=== PATIENT | male | born 1965 | race Caucasian/White ===

== ENCOUNTER 2016-07-17 13:00 | Inpatient (IN) | payer BC ==
[~2016-07-17] VITALS: Ht 182.9 cm; Wt 125.5 kg
--- NOTE | ~2016-07-17 | CON ---
PATIENT'S NAME: KAITLYN THURSTON [facility] AGE: 50 Y [address] ROOM: [place] [address] LOCATION: GICU ADMIT DATE: 07/17/2016 Consultation DISCHARGE DATE: FAMILY PHYSICIAN: Andre Lomax MD ATTENDING PHYSICIAN: Dominga Uribe REFERRING PHYSICIAN: CINDY SUAREZ MD REASON FOR CONSULTATION: Management of hypertension and bradycardia. HISTORY OF PRESENT ILLNESS: A 50-year-old gentleman with a past medical history significant for remote cardiac surgery back in 1975, was admitted to the [facility] under neurosurgical care for acute stroke in the left cerebellar hemispheres. CT angiography was done, which indicated proximal left and distal right vertebral artery occlusion consistent with dissection. Neurology consultation was also obtained by Neurosurgery. He was conservatively managed and the patient progressed very well during the course of the hospitalization until on 07/21/2026 when he woke up and he had slurred speech with drooping of the right face as well as ocular nerve palsy as well. An MRI was repeated again, which did show worsening of the previous stroke as well as new stroke in the cerebellar hemisphere, which was in the left cerebellum. His neurological status continued to worsen during the day in terms of for his neurological status. On asking the patient, he said he feels very bad right now in terms of weakness in his right side and eye and cannot speak. He denied having any chest pressure or any chest pain at this point. He denied to have any cough, any sputum production, and also denied any diarrhea or constipation. He did endorse having nausea all day long. PAST MEDICAL HISTORY: Remote history of cardiac surgery done. Moderate obesity. MEDICATIONS: The patient is notably currently on aspirin, Lipitor, and subcutaneous heparin. In addition, he is on hydrochlorothiazide and metoprolol for blood pressure control. SOCIAL HISTORY: Nonsmoker. No alcohol. FAMILY HISTORY: Negative for any coronary artery disease or any blood clots. ALLERGIES: THE PATIENT IS ALLERGIC TO PENICILLIN. PATIENT'S NAME: KAITLYN THURSTON [facility] AGE: 50 Y [address] ROOM: [place] [address] LOCATION: GICU ADMIT DATE: 07/17/2016 Consultation DISCHARGE DATE: FAMILY PHYSICIAN: Andre Lomax MD ATTENDING PHYSICIAN: Dominga Uribe REVIEW OF SYSTEMS: All other systems reviewed and were negative except as mentioned in the HPI. PHYSICAL EXAMINATION: VITAL SIGNS: Blood pressure procedure 202/83, heart rate of 82, respiratory rate 17, saturating 92%. GENERAL: In mild acute distress due to nausea. HEENT: Head: Atraumatic, normocephalic. Eyes: Nonicteric. No pallor. Oropharynx: Moist mucous membranes CARDIOVASCULAR: Loud S1 and S2. No murmur or gallops heard. RESPIRATORY: Clear to auscultation bilaterally. ABDOMEN: Soft, nontender, nondistended. Bowel sounds are present. EXTREMITIES: No clubbing, cyanosis, or edema. PSYCH: Normal affect mood and speech. NEUROLOGIC: Right third nerve palsy as well as right facial droop noted. Horizontal nystagmus noted as well. Power 5/5 in both extremities. MUSCULOSKELETAL: No muscle tenderness or swelling noted. LABORATORY DATA: Lab work done showed today a glucose of 135, BUN 13, creatinine 0.9, sodium 139, potassium 4.0, chloride 102, bicarb 27, calcium 9.1. ASSESSMENT: 1. Bilateral cerebellar strokes. 2. Bilateral vertebral artery dissection. 3. Hypertension. 4. Morbid obesity. 5. Bradycardia. PLAN: 1. Bradycardia. We obtained an EKG, which did show sinus rhythm, ST-T wave abnormality in the lateral as well as inferior leads. He was on metoprolol. We are going to hold metoprolol regarding his bradycardia. I discussed the case with Dr. Uribe given his bradycardia and hypertension, to consider the possibility of [place] tirad. We are going to obtain one set of troponin as well as an echocardiography in the morning to look for any cardiac changes, but at this point it is likely that these are secondary to primary [employer] process rather than a cardiovascular process. 2. Bilateral cerebellar strokes. Neurology as well as neurosurgeons on board, conservative management so far. Recommended Neurosurgery to consider a neurocritical care consult at this point. 3. Hypertension. The patient is running high blood pressure which I discussed with Dr. Suarez to allow permissive hypertension in order to keep the perfusion to the brain. PATIENT'S NAME: KAITLYN THURSTON [facility] AGE: 50 Y [address] ROOM: [place] [address] LOCATION: [facility] ADMIT DATE: 07/17/2016 Consultation DISCHARGE DATE: FAMILY PHYSICIAN: Andre Lomax MD ATTENDING PHYSICIAN: Dominga Uribe 4. DVT prophylaxis per neurosurgery have been started with heparin 500 q.8 hours. I would additionally recommend a CAT scan again this afternoon to see if there is any hemorrhagic conversion or any evidence of increase in intracranial pressure evident on CAT scan. MD TIO DANIELS/melissa /[id number] d: 07/22/16 0140 t: 07/23/16 1232, CONSULTATION REPORT
--- NOTE | ~2016-07-17 | OR ---
PATIENT'S NAME: KAITLYN THURSTON [facility] AGE: 50 Y [address] ROOM: [place] [address] LOCATION: [facility] ADMIT DATE: 07/17/2016 OR/Procedure Report DISCHARGE DATE: FAMILY PHYSICIAN: Andre Lomax MD ATTENDING PHYSICIAN: Dominga Uribe SURGEON: Emerson Winslow MD CONTENT STRATEGY LEAD: DATE OF PROCEDURE: 08/07/2016 PREOPERATIVE DIAGNOSIS: Altered mental status from brain infarct. POSTOPERATIVE DIAGNOSIS: Altered mental status from brain infarct. PROCEDURES PERFORMED: 1. Percutaneous tracheostomy. 2. EGD with PEG placement. ANESTHESIA: General with local. ESTIMATED BLOOD LOSS: Minimal. REASON FOR PROCEDURE: The patient is a 50-year-old gentleman, who was recently admitted for a cerebellar infarct. He has had significantly altered mental status, and is in need of long-term airway and enteral support. The risks and benefits were discussed with his , who agreed to proceed with tracheostomy and feeding tube placement. PROCEDURE IN DETAIL: The patient was left in the ICU bed with the head elevated. A shoulder roll was used to extend the neck somewhat. After anesthesia provided sedation, the neck was prepped with ChloraPrep and sterilely draped. Lidocaine with epinephrine was injected into the neck just above the sternal notch overlying the trachea. A 2-cm vertical incision was made. Blunt dissection was carried down almost to the trachea. We then advanced the bronchoscope into the endotracheal tube, and left it at the very end of the endotracheal tube. We then carefully withdrew the endotracheal tube, so it was just above where the neck incision was. A needle was then advanced through the trachea till there was air aspirated. A guidewire was then advanced through this needle. Direct visualization showed the guidewire extending down the trachea. The tract was then sequentially dilated. Once adequately dilated, a #8 percutaneous Shiley tracheostomy tube was advanced over the guidewire and into position. There was good oxygenation and CO2 return. The bronchoscope was then advanced through the tracheostomy, and did show some blood in the trachea. We aspirated this, and did not see any active bleeding, but did feel a little more blood initially than I usually see. We went ahead and placed the tracheostomy strap around his neck and removed the PATIENT'S NAME: KAITLYN THURSTON [facility] AGE: 50 Y [address] ROOM: [address] [address] LOCATION: GICU ADMIT DATE: 07/17/2016 OR/Procedure Report DISCHARGE DATE: FAMILY PHYSICIAN: Andre Lomax MD ATTENDING PHYSICIAN: Dominga Uribe shoulder roll. We then advanced the bronchoscope again. This time, there was no evidence of increased bleeding. The patient was placed on the ventilator. A bite block was then placed between his teeth. The gastroscope was advanced through the bite block, and the esophagus was intubated under direct visualization. No abnormalities were seen in the stomach or duodenum. Transillumination and pressure on the abdominal wall were used to localize an area for placement of the feeding tube. This was then marked and prepped with ChloraPrep. Further lidocaine was injected in the area. A 1-cm incision was made. A needle was then advanced through the abdominal wall and visualized entering the gastric mucosa. A guidewire was advanced through the needle. The guidewire was then grasped with a snare, and carefully withdrawn through the esophagus and oropharynx. A PEG tube was advanced over the guidewire, and pulled into position. A bolster was used to hold this in place. POST-PROCEDURE PLAN: The patient will be left in the ICU. We will wean his oxygen back down a 4. They can use the feeding tube in eight hours. MD Larry KRAMERTM/victor ml /[id number] d: 08/07/162016 t: 08/11/16 1400, OPERATIVE SUMMARY
--- NOTE | ~2016-07-17 | HP ---
PATIENT'S NAME: [facility] AGE: 50 Y [address] ROOM: [place] [address] LOCATION: [facility] ADMIT DATE: 07/17/2016 History & Physical DISCHARGE DATE: FAMILY PHYSICIAN: PHYSICIAN, UNKNOWN ATTENDING PHYSICIAN: Dominga Uribe DATE OF SERVICE: 07/17/2016 REFERRING PHYSICIAN: Dr. Fidel Rogers, physician in [place]. REASON FOR REFERRAL: Cerebellar stroke. PATIENT IDENTIFICATION: The patient is a 50-year-old male. PRESENTING COMPLAINT: Dizziness. HISTORY OF PRESENT ILLNESS: The patient's symptoms began about 3 weeks ago and are still present. He describes the dizziness as a sense of rotation and feeling weak all over. He rates the symptom as severe. There are no known alleviating or aggravating factors. The patient also has nausea and vomiting. The patient's symptoms were thought to be vertigo initially, but he ended up having an MRI of the brain, which showed a cerebellar infarct. The patient was therefore [place] evaluation and treatment. PAST MEDICAL HISTORY: The patient has elevated blood pressure and previous aortic valve replacement. He also has a history of back pain. CURRENT MEDICATIONS: 1. Acyclovir. 2. Hydrochlorothiazide. 3. Metoprolol. 4. Prednisone on a tapering dose. 5. Bioflex oral. 6. Vitamin E. 7. Garlic. 8. Aleve. ALLERGIES: PENICILLIN AND ASPIRIN. PATIENT'S NAME: [facility] AGE: 50 Y [address] ROOM: [place] [address] LOCATION: [facility] ADMIT DATE: 07/17/2016 History & Physical DISCHARGE DATE: FAMILY PHYSICIAN: PHYSICIAN, UNKNOWN ATTENDING PHYSICIAN: Dominga Uribe SOCIAL HISTORY: The patient is a nonsmoker. He drinks alcohol occasionally. There is no history of drug use. FAMILY HISTORY: No family history of similar problems. ALLERGIES: PENICILLIN AND ASPIRIN. REVIEW OF SYSTEMS: A 10-point review of systems was carried out. The only abnormal findings are headache and dizziness as described in the previous part of the history. PHYSICAL EXAMINATION: GENERAL: The patient is a middle-aged gentleman, who was alert and cooperative through the examination. VITAL SIGNS: Blood pressure is 167/99, a pulse rate is 66. NEUROLOGIC: Speech is intact. Cranial Nerves: The patient has a slight left facial droop. Motor Examination: The patient has slight weakness in the left upper and lower extremities. Gait not tested. CARDIOVASCULAR SYSTEM: Heart sounds are present. RESPIRATORY SYSTEM: The patient is not short of breath at bedside. EXTREMITIES: No cyanosis or clubbing. SKIN: No skin rashes or skin masses. HEENT: Head: His head is atraumatic. Eyes and Ears: No evidence of trauma. REVIEW OF IMAGING STUDIES: The patient has had a brain MRI today. The MRI shows large areas of acute and subacute infarction involving the base of the cerebellar hemispheres greater on the left than on the right. There is mass effect on the left side with slight midline shift to the right. There is some effacement of the 4th ventricle. There is a small focus of hemorrhage in the left cerebellar hemisphere and possibly at the base of the right as well. There was some concern for early obstructive hydrocephalus. ASSESSMENT: A 50-year-old male with history of vertigo. Imaging studies done today show a cerebellar infarct. MEDICAL DECISION MAKING: The patient is being admitted to the ICU floor. Neurology consult has been requested. The patient's vertigo will be controlled with Zofran and his headaches will be controlled with [place]. We will try and get a CT angiogram to PATIENT'S NAME: KAITLYN THURSTON [facility] AGE: 50 Y [address] ROOM: [place] [address] LOCATION: [facility] ADMIT DATE: 07/17/2016 History & Physical DISCHARGE DATE: FAMILY PHYSICIAN: PHYSICIAN, UNKNOWN ATTENDING PHYSICIAN: Dominga Uribe rule out any underlying cause for the stroke. There may be other tests to be administered by the hospitalists as well. There is no indication for neurosurgical intervention at this time, but the patient might need a ventriculostomy if his hydrocephalus develops or worsens. The patient is being admitted for observation at this time. MD VALERIO HERNÁNDEZ/melissa /[id number] D: [id number] T: [id number] HISTORY & PHYSICAL
--- NOTE | ~2016-07-17 | CON ---
PATIENT'S NAME: KAITLYN LUCIANO [facility] AGE: 50 Y [address] ROOM: [id number] [place], [place] [address] LOCATION: GICU ADMIT DATE: 07/17/2016 Consultation DISCHARGE DATE: FAMILY PHYSICIAN: Andre Lomax MD ATTENDING PHYSICIAN: Dominga Uribe DATE OF CONSULTATION: 07/17/2016 REFERRING PHYSICIAN: CINDY HASSAN MD TIME SEEN: 09:00 p.m. HISTORY OF PRESENT ILLNESS: I was asked by Dr. Uribe to help in the workup of Mr. Luciano who is transferred here from the emergency room at [facility]. He was found to have a cerebellar stroke on brain imaging and the patient was sent here for further evaluation. The story is such that around 3 weeks ago, he started to have dizziness and lightheadedness that did not appear to be associated with a head change position maneuvers, that being typical of benign positional vertigo. He states that his dizziness was brought on by a change in position from standing up. He would experience a feeling of lightheadedness often and feel as though he was walking like a "drunkard." He went to his primary care physician and the physician felt that he likely had positional vertigo and placed him on what appears to be meclizine. The patient did make some improvement in his gait over the course of the next few days, where he was not drifting to one side. If he had to say which side he drifted to, that would be towards his left side, though in the past 48 hours, he says that his symptoms have improved. What prompted the admission to the hospital after this amount of time was few days ago, he started to get a bit worse with his symptoms, falling down after he came back from a bathroom, though he did not have any change in his symptoms such as problems with aphasia or visual field disturbance, which is double vision. His symptoms were clearly a bit worse than they were on the prior days of the week. Here in the hospital, he was noted to have blood pressure elevations to over 220 systolics and had to be given hydralazine for treatment of his blood pressures. When I saw the patient, he actually looked good. He was able to get up normally without any evidence of dizziness. When I walked him, he did not appear to have any change suggesting a wide-based gait. He was not nauseous, nor did he have vomiting, which was the problem with him a few days ago. He denied any headaches. In general, I asked him about issues concerning headache or neck pain, considering he is a young gentleman without any other known risk factors for stroke, as I was concerned that he may be had an injury to his neck. However, he denied any particular injury. He does some lifting as a maintenance repairer and also he was doing some general moving with his . He denies any heavy lifting or straining over the past few weeks. I felt the PATIENT'S NAME: KAITLYN LUCIANO [facility] AGE: 50 Y [address] ROOM: [place] [address] LOCATION: [facility] ADMIT DATE: 07/17/2016 Consultation DISCHARGE DATE: FAMILY PHYSICIAN: Andre Lomax MD ATTENDING PHYSICIAN: Dominga Uribe patient was a bit of a poor historian as I asked him numerous times about any head or neck pain. He denied this; however, in speaking to his , in retrospect, he did have new onset of left neck pain that was focal, was different from any typical type of a headache. With that concern, I asked for a CT angiogram to be done of his head and neck to look for any evidence of vertebral dissection, which may have caused a posterior circulation stroke. I was also concerned about the patient's history of valvular disease as well as having a surgery in the past for repair of a cardiac valve. The concern was not so much of an embolic stroke, but whether he has perhaps a collagen vascular type abnormality, which may be reflective in a vertebral dissection. Indeed, a CT angiogram of the neck did reveal evidence for a left vertebral artery dissection, which commenced at the skull base where there represented a likely complete occlusion. There was even some narrowing of the right vertebral artery. There was even some subtotal filling of the right vertebral artery above the level of C6. Distal to this occlusion, the basilar artery appeared to be widely patent and other vessels into the [place] was open. Noncontrast head CT backed up the prior brain imaging showing a cerebellar stroke that was clearly worse on the left side of the cerebellar hemisphere, distant with the MRI finding that was sent to us from [facility] done on 07/17/2016. There was no associated hemorrhage and there did not appear to be any blocking of the ventricular system such as the fourth ventricle. We noted that there was no evidence of any significant carotid stenosis. 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 This was distal to the origin of the left subclavian artery. There was postsurgical changes at that area with the patient's prior known surgery. CURRENT MEDICATIONS: Include: 1. Lipitor 80 mg p.o. q.h.s. started today. 2. Diazepam 2.5 mg q.6 hours p.r.n. for nauseousness. 3. Aspirin 81 mg p.o. daily. 4. Metoprolol 25 mg p.o. b.i.d. 5. Nicotine transdermal patch 21 mg daily. 6. Vitamin E 400 international units daily. 7. Zofran 4 mg q.6 hours p.r.n. nauseousness. 8. Hydrochlorothiazide 25 mg p.o. q.a.m. ALLERGIES: THE PATIENT HAS AN ALLERGY TO PENICILLIN. A PRIOR LISTED ALLERGY TO ASPIRIN IS UNLIKELY TO BE CORRECT AND DENIES ANY KNOWN HISTORY OF ALLERGY TO ASPIRIN. SOCIAL HISTORY: He is a previous smoker. He denies any alcohol use. He does use tobacco snuff on occasion. PATIENT'S NAME: KAITLYN LUCIANO [facility] AGE: 50 Y [address] ROOM: [id number] [place] [id number] LOCATION: [facility] ADMIT DATE: 07/17/2016 Consultation DISCHARGE DATE: FAMILY PHYSICIAN: Andre Lomax MD ATTENDING PHYSICIAN: Dominga Uribe FAMILY HISTORY: Noncontributory here. He is and he has 2 boys and 2 girls. REVIEW OF SYSTEMS: Other than the presentation with a new cerebellar stroke associated with vertigo, ataxia, nauseousness, and vomiting, the patient has a review of his other systems is completely within normal limits. PHYSICAL EXAMINATION: GENERAL: The patient looked completely normal. He answered questions appropriately. I did not appreciate any slurring of speech. VITAL SIGNS: Variable with blood pressure between 167/100 to 185/105, pulse was 68, respiration rate 16, temperature is afebrile. NEUROLOGICAL: Cranial nerves 2 through 12 was intact. I did not appreciate any slurring of speech. There is normal facial symmetry and sensation. On neck flexion and extension, I did not induce any vertiginous symptoms. He had a focal pain in the left back of his neck that was consistent with the vertebral dissection. Testing for dysmetria was negative on [id number] and also with eyes closed, he was easily able to bring his [id number] without pass pointing. Rapid alternating hand movements were completely normal. There was no evidence of any pronator drift. His power in all 4 limbs was 5/5 with normal bulk and tone. His gait was normal, narrow based. He was even able to do a normal tandem gait. IMPRESSION: Mr. Luciano is a 50-year-old male patient who presented with symptoms of vertigo, difficulty in walking, consistent with a wide-based gait. This occurred nearly 3 weeks ago. The findings on MRI at [place] along with our findings on CT angiogram do show a stroke into the cerebellum without any significant edema or mass effect that would be a surgical issue such as blocking the fourth ventricle. He actually has a normal neurologic exam surprisingly with the size of his stroke and more of the left hemisphere being involved here consistent with the new left vertebral dissection. The etiology for his dissection is unclear. It may be the fact that he has a genetic predisposition for injury to his blood vessels, thus simply a straining event such as lifting a heavy object may have caused this, but nothing in history is really pointing to this. Thankfully, he has made a good recovery over the course of the past week. We should treat him with any anti-platelet agent, which is the recommended treatment for vertebral dissection. There is no evidence that anticoagulation is better than anti-platelet agent for his process here. Since he has made a very good recovery, he should be watched here in the hospital for any worsening of his symptoms. He was actually considered for discharge today, but he has started to develop some nauseousness and even an episode of vomiting. Therefore, he was placed on PATIENT'S NAME: KAITLYN LUCIANO [facility] AGE: 50 Y [address] ROOM: [id number] [place], [place] [address] LOCATION: [facility] ADMIT DATE: 07/17/2016 Consultation DISCHARGE DATE: FAMILY PHYSICIAN: Andre Lomax MD ATTENDING PHYSICIAN: Obasi,Dominga N Zofran as well as a low dose of the benzodiazepine, Valium often used in cerebral strokes for nauseousness. He seems to be doing fine, but he does require some observation 2 and perhaps a repeat CAT scan to make sure there are no new changes to this cerebellar stroke. After the patient is discharged, he would need to follow up with us, Neurology Clinic, in a few weeks. At this point, he does not need any particular workup for issues of collagen vascular disease, but this could certainly be consideration for workup in the future. In addition to the anti-platelet agent, Lipitor was started for plaque stabilization. Finally, the risks for future strokes based upon somewhat narrowed vertebral arteries is certainly possible. Though the extent of a risk for stroke is unclear at this point, I do believe that since he has made a good recovery, daily aspirin would lead to at least the less chance of a recurrent stroke. I will continue to follow along with the patient on neurologic consultation. MD KATERYNA VILLAFANA/modl /[id number] d: 07/19/16 0336 t: 07/20/16 2250, CONSULTATION REPORT
--- NOTE | ~2016-07-17 | DS ---
PATIENT'S NAME: KAITLYN THURSTON [facility] AGE: 50 Y [address] ROOM: [address] [place], [place] [address] LOCATION: [facility] ADMIT DATE: 07/17/2016 Discharge Summary DISCHARGE DATE: 08/15/2016 FAMILY PHYSICIAN: Andre Lomax MD ATTENDING PHYSICIAN: Dominga Uribe REASON FOR ADMISSION: The patient is a 50-year-old male, who developed dizziness. The patient's past history is significant for previous aortic valve replacement and also a history of elevated blood pressure. On examination, the patient had a slight left facial droop and slight weakness in his left upper and lower extremities. Imaging studies showed large areas of acute and subacute infarction involving the cerebellar hemispheres, worse on the left side with mass effect. 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 TREATMENT RENDERED: The patient was started on anticoagulation. The Stroke Neurology Service was also consulted to help with the patient's care. COURSE IN HOSPITAL: The patient's stroke unfortunately increased, and he became more obtunded. He had to be intubated. The patient also developed worsening hydrocephalus. On account of this decline in neurological status and development of hydrocephalus, the patient was taken to the operating room and had posterior fossa craniectomy for management of brain swelling as well as placement of ventriculostomy for management of intracranial pressure. These measures stabilize the patient and he again started to respond. Unfortunately, his hydrocephalus persisted when the drain was removed, and it was necessary to perform a ventriculoperitoneal shunt. The patient developed persistent left-sided weakness, almost a hemiplegia. He was also treated with tracheostomy and placement of a PEG tube for feeding. Arrangements were made for the patient to be transferred, and he was accepted at the long-term acute care at [facility]. He was transferred on August 15, 2016. At the time of transfer, the patient was awake and able to follow commands. He had a PEG tube and a tracheostomy, but he had significant left-sided weakness and was going to try some rehabilitation to see if he could regain some function. 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 PATIENT'S NAME: KAITLYN THURSTON [facility] AGE: 50 Y [address] ROOM: [address] [place] [id number] LOCATION: GICU ADMIT DATE: 07/17/2016 Discharge Summary DISCHARGE DATE: 08/15/2016 FAMILY PHYSICIAN: Andre Lomax MD ATTENDING PHYSICIAN: Dominga Uribe DOMINGA URIBE MD CNO/modl /[id number] d: 09/02/161948 t: 09/03/161947, DISCHARGE SUMMARY
--- NOTE | ~2016-07-17 | ENPV ---
Vascular Lower Extremities DVT Study Procedure Demographics Patient Name KAITLYN THURSTON Date of Study 07/24/2016 Patient Number [id number] Gender Male Date of 1965 Age 50 Visit Number [id number] Height 72 Accession Number [id number] Weight 280.01 Referring Jayce Grewal MD Interpreting Gentry Durand MD Physician Physician Physician Ordering Jayce Grewal Lead Installer Physician Plasticator Rachel Malloy, RT,RVT,RDCS Conclusions Summary Normal venous duplex examination of the legs bilaterally with normal venous Doppler signals noted throughout. No evidence of thrombophlebitis is noted bilaterally in the deep and superficial veins of the legs. Small calf thrombi cannot be excluded. Procedure Type of Study: Veins:Lower Extremities DVT Study, Venous Duplex Lower Extremity Bilateral. Appropriate Use Criteria:9 Patient Status:Routine. Study Location:Inpatient Portable. Technical Quality:Adequate visualization. - Preliminary reported to:ZORAN Butler. Velocities are measured in cm/s ; Diameters are measured in cm Right Lower Extremities DVT Study Measurements Right 2D and Doppler Measurements + + + + +------+------+ + !Location !Visualized!Compressibility!Thrombosis!Signal!Reflux!Reflux ! ! ! ! ! ! ! !(sec) ! + + + + +------+------+ + !GSV Thigh !Yes !Yes !None !Phasic!No ! ! + + + + +------+------+ + !Common !Yes !Yes !None !Phasic!No ! ! !Femoral ! ! ! ! ! ! ! + + + + +------+------+ + !Prox !Yes !Yes !None !Phasic!No ! ! !Femoral ! ! ! ! ! ! ! + + + + +------+------+ + !Mid Femoral!Yes !Yes !None !Phasic!No ! ! + + + + +------+------+ + !Dist !Yes !Yes !None !Phasic!No ! ! !Femoral ! ! ! ! ! ! ! + + + + +------+------+ + !Popliteal !Yes !Yes !None !Phasic!No ! ! + + + + +------+------+ + !Gastroc !Yes !Yes !None !Phasic!No ! ! + + + + +------+------+ + !PTV !Yes !Yes !None !Phasic!No ! ! + + + + +------+------+ + !Peroneal !Yes !Yes !None !Phasic!No ! ! + + + + +------+------+ + Left Lower Extremities DVT Study Measurements Left 2D and Doppler Measurements + + + + +------+------+ + !Location !Visualized!Compressibility!Thrombosis!Signal!Reflux!Reflux ! ! ! ! ! ! ! !(sec) ! + + + + +------+------+ + !GSV Thigh !Yes !Yes !None !Phasic!No ! ! + + + + +------+------+ + !Common !Yes !Yes !None !Phasic!No ! ! !Femoral ! ! ! ! ! ! ! + + + + +------+------+ + !Prox !Yes !Yes !None !Phasic!No ! ! !Femoral ! ! ! ! ! ! ! + + + + +------+------+ + !Mid Femoral!Yes !Yes !None !Phasic!No ! ! + + + + +------+------+ + !Dist !Yes !Yes !None !Phasic!No ! ! !Femoral ! ! ! ! ! ! ! + + + + +------+------+ + !Popliteal !Yes !Yes !None !Phasic!No ! ! + + + + +------+------+ + !Gastroc !Yes !Yes !None !Phasic!No ! ! + + + + +------+------+ + !PTV !Yes !Yes !None !Phasic!No ! ! + + + + +------+------+ + !Peroneal !Yes !Yes !None !Phasic!No ! ! + + + + +------+------+ + Signature dtt: IGOR GONZALES dtd: 07/24/16 0930 Physician Beltran Shepard
--- NOTE | ~2016-07-17 | OR ---
PATIENT'S NAME: KAITLYN THURSTON [facility] AGE: 50 Y [address] ROOM: [place] [address] LOCATION: [facility] ADMIT DATE: 07/17/2016 OR/Procedure Report DISCHARGE DATE: FAMILY PHYSICIAN: Andre Lomax MD ATTENDING PHYSICIAN: Dominga Liz SURGEON: Dominga Liz MD DIRECTOR OF LEADERSHIP DEVELOPMENT: Samantha Marroquin. DATE OF PROCEDURE: 07/22/2016 PREOPERATIVE DIAGNOSIS: Cerebellar swelling secondary to cerebellar infarct. POSTOPERATIVE DIAGNOSIS: Cerebellar swelling secondary to cerebellar infarct. PROCEDURE PERFORMED: 1. Placement of right frontal ventriculostomy for management of intracranial pressure. 2. Posterior fossa craniectomy and duraplasty for management of brain swelling. ANESTHESIA: General. ANESTHESIA PROVIDER: Zane Eduardo MD. HISTORY: The patient is a 50-year-old male who was admitted with cerebellar infarction on 07/17/2016. The patient developed cerebellar swelling secondary to the infarction. It was necessary to perform decompressive craniectomy to provide room for the swollen cerebellum and also necessary to place a ventriculostomy for treatment of hydrocephalus and monitoring of intracranial pressure. The procedures, benefits, and risks were discussed with the patient's family. With their consent, the patient was brought to the operating room for surgery. PROCEDURE IN DETAIL: In the operating room, the patient was placed in a supine position. Anesthesia was induced. He was intubated. Appropriate support lines were placed. Ventriculostomy was placed first. The hair on the right side of the head was clipped. The entry point was marked out at 2.5 cm behind the right midpupillary line. The whole area was prepped and draped in a sterile fashion. The incision was opened and held open with self-retaining retractors. The twist drill was used to drill a hole through the skull. The catheter was then tunneled under the scalp and brought out of the twist drill site. The dura was coagulated. The ventricular catheter was inserted into the brain and spinal fluid was accessed at first try. Opening pressure was approximately 12 cm of water. The catheter was hooked up to drainage bag and secured to the scalp. PATIENT'S NAME: KAITLYN THURSTON [facility] AGE: 50 Y [address] ROOM: [place] [address] LOCATION: [facility] ADMIT DATE: 07/17/2016 OR/Procedure Report DISCHARGE DATE: FAMILY PHYSICIAN: Andre Lomax MD ATTENDING PHYSICIAN: Dominga Liz Attention was then directed to the posterior fossa craniectomy. The patient's head was placed in a 3-pin [place] headline writer. He was then turned to a prone position on a Ashok table taking care to protect all pressure points. The hair on the back of his head was clipped. A midline incision was marked out from the external occipital protuberance to the C2 vertebra. The whole area was prepped and draped in a sterile fashion. Local anesthesia was infiltrated along the incision line. The #10 blade was used to open the incision and to deepen it to the fascial layer. Self-retaining retractors were placed. The incision was deepened further until the skull was reached. The muscles were dissected off the back of the skull to expose the suboccipital area. Retractors were adjusted and hemostasis was achieved. The ring of C1 was identified and the spinous process of C2 could also be partially seen. A bur hole was then placed, and using this bur hole, a craniectomy was performed in the suboccipital area. The craniectomy was carried out partly with a [place] rongeur as well. The craniectomy exposed both cerebellar hemispheres as well as the cervicomedullary junction. The craniectomy was widened until we could see the edges of the dura at the craniocervical junction. The dura started to pulsate a little bit as the craniectomy progressed. The dura was then opened in a Y-shaped fashion. Hemostasis was achieved. A piece of Durepair was used to supplement the dura and was sewn into the edges of the open dura to create a pouch. Next, DuraGen was laid over the Durepair and DuraSeal was used to hold down the DuraGen. I felt that we had satisfactory decompression of the posterior fossa. The incision was then closed in layers using appropriate suture materials. Nylon was used to close the skin. Dressing was applied. The patient was rolled back to a supine position. The Negro was taken off his head. He was brought back to the ICU, still intubated, to continue his recovery. I was present at and performed every aspect of this procedure, assisted at some stages by operating room nurses. There were no apparent intraoperative complications. Swabs, needles, and instruments were all accounted for at the end of the case. Estimated blood loss was 200 mL, and there was no reason for blood transfusion. The patient's prognosis is uncertain at this time given the large size of stroke that he has, but it is hoped that this craniectomy will provide enough room for brain swelling and minimize secondary brain damage. DOMINGA LIZ MD CNO/victor ml PATIENT'S NAME: KAITLYN THURSTON [facility] AGE: 50 Y [address] ROOM: [place] [address] LOCATION: [facility] ADMIT DATE: 07/17/2016 OR/Procedure Report DISCHARGE DATE: FAMILY PHYSICIAN: Andre Lomax MD ATTENDING PHYSICIAN: Dominga Liz /[id number] d: 07/23/162338 t: 07/25/162039, OPERATIVE SUMMARY
--- NOTE | ~2016-07-17 | CON ---
PATIENT'S NAME: KAITLYN LUCIANO [facility] AGE: 50 Y [address] ROOM: [place] [address] LOCATION: [facility] ADMIT DATE: 07/17/2016 Consultation DISCHARGE DATE: FAMILY PHYSICIAN: Andre Lomax MD ATTENDING PHYSICIAN: Dominga Uribe DATE OF CONSULTATION: 08/05/2016 REFERRING PHYSICIAN: CINDY HASSAN MD REASON FOR CONSULTATION: Need for trach and PEG. HISTORY OF PRESENT ILLNESS: Kaitlyn Luciano is a 50-year-old male who presented on July 17 with dizziness and a sense of rotation and feeling weak all over. The patient had had symptoms for approximately 3 weeks prior to admission. The patient had an MRI of the brain, which showed a cerebellar infarct. The patient was transferred to [facility] to be evaluated by Dr. Uribe. The patient was admitted and initially appeared to do okay with tentative plans being made for discharge. On July 21, the patient's neuro status worsened and he subsequently ended up in the intensive care unit intubated. Imaging studies showed development of hydrocephalus in addition to the cerebellar infarct. The patient proceeded to the operating room for a ventriculostomy placement. On July 25, Dr. Uribe noted cerebellar infarct with increased brainstem and cerebellar pressure. He continues on the ventilator along with an OG for tube feeding. Ventriculostomy is still in place. Dr. Winslow was consulted for trach and PEG placement. Per review of the chart, Dr. Uribe is also contemplating possible TILE PICKER shunt placement. The patient's is at bedside. She states that the patient had been in relatively good health prior to admission. 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 He was a nonsmoker and occasionally consumed alcohol. She denies any abdominal operations. She recalls clavicle fracture, rotator cuff repair, and meniscal repair. PAST MEDICAL HISTORY: Per review of the chart. ALLERGIES: PENICILLIN. MEDICATIONS: At home included, 1. Acyclovir 800 mg p.o. t.i.d. 2. Prednisone 20 mg p.o. daily. PATIENT'S NAME: KAITLYN LUCIANO [facility] AGE: 50 Y [address] ROOM: [place] [address] LOCATION: [facility] ADMIT DATE: 07/17/2016 Consultation DISCHARGE DATE: FAMILY PHYSICIAN: Andre Lomax MD ATTENDING PHYSICIAN: Dominga Uribe 3. Meclizine 12.5 mg p.o. q.12 hours p.r.n. dizziness. 4. Zofran 4 mg p.o. q.6 hours p.r.n. nausea. 5. Lopressor 25 mg p.o. b.i.d. 6. Hydrochlorothiazide 25 mg p.o. daily. 7. Aleve 220 mg p.o. daily. 8. Garlic 1 tablet p.o. daily. 9. Potassium 99 mg p.o. daily. 10. Vitamin E 400 units p.o. daily. 11. Bioflex tablet 1 tablet p.o. daily. 12. Claritin 10 mg p.o. daily. ILLNESSES: Hypertension, chronic low back pain, and obesity. OPERATIONS: Clavicle fracture, rotator cuff, meniscus repair, and he has had aortic valve replaced twice as a child. SOCIAL HISTORY: The patient is . He works in [employer] in the [employer]. Nonsmoker and occasional alcohol. FAMILY HISTORY: Not obtained. REVIEW OF SYSTEMS: Not obtained. PHYSICAL EXAMINATION: VITAL SIGNS: Temperature 98.5, blood pressure 181/102, pulse 67, and respirations 14. GENERAL: A 50-year-old male who is intubated with an OG tube in place. He opens his eyes during the exam. He does not try to interact with me at all, the states that he has with her previously. NECK: Inspection shows no obvious scars. LUNGS: Coarse bilaterally. HEART: Regular rate and rhythm. ABDOMEN: Bowel sounds are present. Abdomen is soft, nontender. No scars present. LABORATORY WORK: CBC from yesterday shows hemoglobin 10.9, hematocrit 32.6, platelets 525, and white blood cell count 11.3. Renal panel from today sodium 144, potassium 3.7, chloride 107, CO2 28, BUN 23, creatinine 0.8, and glucose 128. CT of the head without contrast today shows encephalomalacia and the left cerebellar PATIENT'S NAME: KAITLYN LUCIANO [facility] AGE: 50 Y [address] ROOM: [place] [address] LOCATION: [facility] ADMIT DATE: 07/17/2016 Consultation DISCHARGE DATE: FAMILY PHYSICIAN: Andre Lomax MD ATTENDING PHYSICIAN: Dominga Uribe hemisphere to be stable. Right frontal ventriculostomy remains in satisfactory position. No acute changes. ASSESSMENT: A 50-year-old male with cerebellar infarct with subsequent hydrocephalus and acute respiratory failure, in need of a tracheostomy and PEG tube placement. PLAN: I discussed plans for trach and PEG with the who is sitting at bedside. I discussed the procedures along with risks and benefits. I will discuss this patient further with Dr. Winslow who will evaluate the patient and make arrangements to proceed with trach and PEG in the near future. We will await to hear from Dr. Uribe on whether he plans to proceed with TILE PICKER shunt and whether we need to be involved with that at all or not. The 's questions and concerns were addressed. Again, Dr. Winslow will be evaluating the patient, will be involved in the assessment and plan, and is available for supervision. NAIMA SHEEHAN PA-C FOR MD SHARIFA RKAMERK/melissa /[id number] d: 08/05/16 1916 t: 08/19/16 1053, CONSULTATION REPORT
--- NOTE | ~2016-07-17 | CON ---
PATIENT'S NAME: KAITLYN [facility] AGE: 50 Y [address] ROOM: [place] [address] LOCATION: GICU ADMIT DATE: 07/17/2016 Consultation DISCHARGE DATE: FAMILY PHYSICIAN: Andre Lomax MD ATTENDING PHYSICIAN: Dominga Uribe REFERRING PHYSICIAN: CINDY HASSAN MD Consult for Dr. Uribe. This 50 years old gentleman is referred for rehab evaluation for possible GIRP admission, admitted to [facility] on 07/17/2016 with history of dizziness and falling about 3 weeks duration, still present at the time of admission without known aggravating factors. He felt nauseated on and off and had some episodes of vomiting. His MRI showed a cerebellar infarct with some drifting to the left side when up. He also had on admission marked increase of blood pressure, at the present time controlled. When I saw him, he did feel well with some dizziness on and off and he would on and off have nausea and small vomits. Past history of significant, he has history of hypertension. He has at the present time MRI showing acute and subacute infarction of base of the cerebellar hemisphere, left side more involved than the right with slight shift to the right. There is a small focus of hemorrhage in the left cerebellar hemisphere. Past history of significant aortic valve replacement at age about 6 and repeated in two years after that. 1. Hypertension. 2. Chronic low back pain. 3. Obesity, moderate. 4. Chews tobacco. Alert and oriented x3. VITALS: Blood pressure 145/77, temperature 99.0, pulse 74, respirations 10. He is 6 feet tall and weighs 120.5 kg. NEURO: Head normocephalic, I did not appreciate any weakness in the face. Cranial nerves 2 through 12 are within normal except for the dizziness. He can speak, can comprehend and express. Voice is clear and not wet. Tongue and soft palate are moving symmetrical. He can swallow without much difficulty. PATIENT'S NAME: KAITLYN [facility] AGE: 50 Y [address] ROOM: [place] [address] LOCATION: [facility] ADMIT DATE: 07/17/2016 Consultation DISCHARGE DATE: FAMILY PHYSICIAN: Andre Lomax MD ATTENDING PHYSICIAN: Dominga Uribe He has good bowel and bladder control. He has left upper and lower extremity less coordinated in comparison to the right. Deep tendon reflexes slightly brisk throughout. Babinski is equivocal. MEDICATIONS: He is on the following medications. 1. NaCl 0.9%. 2. Cardene. 3. Heparin sodium. 4. Valium. 5. Hydralazine. 6. Tylenol. 7. Antivert. 8. Zofran. 9. Nicotine patch. 10. [place]. 11. Lipitor. 12. HydroDIURIL. 13. Aspirin. 14. Claritin. 15. Vitamin E. 16. Lopressor. 17. Reglan. 18. Mannitol. He has been initiated on PT, OT, which I will continue. I feel that this gentleman will benefit from intensive rehabilitation of about 3 weeks, and follow on outpatient thereafter. All the above was explained to him and his in detail. They verbalized understanding and agreement. Thank you for this referral. I will take him as soon as he is stable, provided he is okayed by the admitting physician. JANET TEE MD WMS/modl /[id number] d: 07/22/16 1451 t: 07/23/16 0811, CONSULTATION REPORT
--- NOTE | ~2016-07-17 | CON ---
PATIENT'S NAME: KAITLYN THURSTON [facility] AGE: 50 Y [address] ROOM: [address] [address] LOCATION: [facility] ADMIT DATE: 07/17/2016 Consultation DISCHARGE DATE: FAMILY PHYSICIAN: Andre Lomax MD ATTENDING PHYSICIAN: Dominga Uribe REFERRING PHYSICIAN: CINDY HASSAN MD ADDENDUM: I personally saw the patient with nurse practitioner, Donna Irby on July 22, 2016. Leo portions of history and examination were repeated. I agree with discussed assessment and plan of care. PAMELAED MD MANAS ROLDAN/melissa /[id number] d: t: 07/28/16 1131, CONSULTATION REPORT
--- NOTE | ~2016-07-17 | OR ---
PATIENT'S NAME: KAITLYN THURSTON [facility] AGE: 50 Y [address] ROOM: [address] [address] LOCATION: [facility] ADMIT DATE: 07/17/2016 OR/Procedure Report DISCHARGE DATE: FAMILY PHYSICIAN: Andre Lomax MD ATTENDING PHYSICIAN: Dominga Uribe SURGEON: Dominga Uribe MD FOOT DRILL OPERATOR: Reji Pitts CST. DATE OF PROCEDURE: 08/13/2016 PREOPERATIVE DIAGNOSIS: Hydrocephalus. POSTOPERATIVE DIAGNOSIS: Hydrocephalus. PROCEDURE PERFORMED: Placement of right-sided ventriculoperitoneal shunt for hydrocephalus. ANESTHESIA: General. ANESTHESIA PROVIDER: Rodriguez Sotomayor MD. HISTORY: The patient is a 50-year-old male who sustained cerebellar infarcts. The infarcts produced ventricular obstruction at the level of the 4th ventricle. The patient was initially treated with ventriculostomy. Upon removal of the ventriculostomy, his ventricles remain dilated, and he did have some decreased responsiveness. It was felt that the ventricular enlargement could be contributing to his reduced responsiveness and as his ventricles were still enlarged the shunt seemed appropriate. The procedure was discussed with the patient's significant other who is the [id number], benefits and risks were discussed; and with their consent, the patient was brought to the operating room for surgery. PROCEDURE IN DETAIL: In the operating room, the patient was placed in a supine position. Anesthesia was induced. He already had a tracheostomy. A roll was placed under his right shoulder and the hair on the left-side of the back of his head was clipped. The hair was also removed along the right chest wall and right upper abdomen. The incision lines were then marked out along the right parietooccipital area and the right upper quadrant of the abdomen. The whole area was prepped and draped in a sterile fashion. Local anesthesia was infiltrated. The cranial and abdominal incisions were then opened. The scalp flap was peeled back to expose the galea. The galea was opened in a cruciate fashion and the 4 quadrants were peeled back. The Passer was used to create a tunnel from the cranial to the abdominal incisions. The abdominal incision was opened over the area where the Passer was presenting at the upper abdomen. [facility] AGE: 50 Y [address] ROOM: [id number] [place], [place] [address] LOCATION: [facility] ADMIT DATE: 07/17/2016 OR/Procedure Report DISCHARGE DATE: FAMILY PHYSICIAN: Andre Lomax MD ATTENDING PHYSICIAN: Dominga Uribe The peritoneal catheter was then fed through the Passer from cranial to the abdominal end and the Passer was removed leaving the peritoneal catheter in place. Next, a sekou hole was drilled and the area of skull exposed. Bone wax was used to wax the edges. Attention was once again directed to the abdomen and the abdominal incision was opened and deepened through successive layers until the peritoneum was confidently identified. The peritoneum was held up with hemostats and a pursestring suture was made. The peritoneum was then opened and a #4 [place] was placed confidently within the peritoneal cavity gently displacing the omentum. Once again, attention was directed to the cranial end. The ventricular catheter was trimmed to a length of 11 cm. Extra-side holes were drilled along the shaft of the catheter. The dura was coagulated and incised. The catheter was inserted through the sekou hole into the ventricles. The ventricles were accessed at first try. Opening pressure was measured and it was between 16 and 18 cm of CSF. CSF sample was removed for cultures. The valve was then programmed to 13 cm of water. The valve was connected to the distal end of the ventricular catheter. The bottom end of the valve was also connected to the proximal end of the peritoneal catheter. The junctions were secured with the appropriate size. The peritoneal catheter was then inserted into the peritoneum while the [place] #4 instrument was withdrawn. The pursestring suture was gently tied around the peritoneal catheter. The cranial and abdominal incisions were then closed with appropriate closing materials. Dermabond was used to close the skin on the abdomen while Nylon was used to close the skin on the head. Sterile dressings were applied. The patient was then brought back to the Intensive Care Unit to continue his recovery. I was present at and performed every aspect of this procedure assisted at some stages by the operating room nurses. There were no apparent intraoperative complications. Swabs, needles, and instruments were all accounted for the end of the case. Estimated blood loss was less than 100 mL. There was no reason for blood transfusion. I expect the patient to do well from this procedure. The plan is to transfer him to a longtime care within the next several days. MD VALERIO HERNÁNDEZ/melissa PATIENT'S NAME: KAITLYN THURSTON [facility] AGE: 50 Y [address] ROOM: [place] [address] LOCATION: [facility] ADMIT DATE: 07/17/2016 OR/Procedure Report DISCHARGE DATE: FAMILY PHYSICIAN: Andre Lomax MD ATTENDING PHYSICIAN: Dominga Uribe /[id number] d: 08/14/165 t: 08/20/16 1644, OPERATIVE SUMMARY
--- NOTE | ~2016-07-17 | ECHO ---
Transthoracic Echocardiography Report (TTE) Demographics Patient Name KAITLYN THURSTON Date of Study 07/22/2016 Patient Number [id number] Visit Number [id number] Date of 1965 Room Number G6216 Gender Male Number Age 50 year(s) Referring Monie Mckeon Real Estate Utilization Officer Kellie Suresh RDCS, Physician RVT Jojo Jeronimo MD Physician Interpreting James Taylor MD Field Sales Engineer Physician Girma Pizano MD Supervising Ordering Jojo Jeronimo MD, MD/MLP Physician Nurse Stress Lead Principal Technical Architect Conclusions Contractility Score Summary Normal Left Ventricular contractility was noted. Summary Technically difficult exam. Normal LV/RV size and systolic function. The estimated left ventricular ejection fraction is 60-65%. Mild concentric left ventricular hypertrophy. Diastolic assessment reveals Grade II pseudonormal diastolic function . The bioprosthetic aortic valve appears to function normally with no perivalvular leak. Procedure Type of Study TTE procedure:2D Echocardiogram. Procedure Date Date: 07/22/2016 Start: 01:03 PM Study Location: Inpatient Portable Technical Quality: Limited visualization due to body habitus. Indications:Hypertension. Appropriate Use Criteria: 9 Patient Status: Routine HR: 80 bpm BP: 193/74 mmHg M-Mode/2D Measurements LV Diastolic Dimension: 4.99 cm LV Systolic Dimension: 2.42 cm LV Septum Diastolic: 1.36 cm LV PW Diastolic: 1.08 cm Cardiac Output: 10.72 l/min LA volume: 61 ml RV Diastolic Dimension: 3.67 cm LVOT: 2.9 cm LVOT VTI: 20.3 cm LV Stroke volume: 134.02 ml RV Mid: 2.83 cm RV Length: 7.55 cm TAPSE: 3.46 cm TDI-S': 23 cm/s Doppler Measurements AV Peak Velocity: 1.94 m/s MV Peak E-Wave: 0.69 m/s AV Peak Gradient: 15.05 mmHg MV Peak A-Wave: 0.66 m/s AV Mean Gradient: 9 mmHg MV E/A Ratio: 1.04 LVOT Peak Velocity: 1.03 m/s MV P1/2t: 46 msec Estimated RAP:5 mmHg PV Peak Velocity: 0.85 m/s E' Septal Velocity: 0.07 m/s PV Peak Gradient: 2.88 mmHg E' Lateral Velocity: 0.07 m/s A' Septal Velocity: 0.12 m/s A' Lateral Velocity: 0.14 m/s Findings Left Ventricle Mild concentric left ventricular hypertrophy. Diastolic assessment reveals Grade II pseudonormal diastolic function . Right Ventricle Normal right ventricle structure and function. Left Atrium The left atrium is mildly dilated by LA volume index measurement. Right Atrium Normal right atrial size. Mitral Valve Mild mitral regurgitation by color Doppler. Aortic Valve The prosthetic aortic valve appears to function normally with no perivalvular leak. The bioprosthetic AV is not well seen. Tricuspid Valve Normal appearing tricuspid valve. Pulmonic Valve Normal pulmonic valve structure and function. Pericardial Effusion No evidence of pericardial effusion. Epicardial fat pad noted. Miscellaneous Visualized portions of the aortic root and ascending aorta appear normal in size. Pleural Effusion No evidence of pleural effusion. Contractility Score LV regional wall motion:(0-Non visualized 1-Normal 2-Hypokinesis 3-Akinesis 4-Dyskinesis 5-Aneurysm) Signature dtt: EVELIA GARCIA dtd: 07/22/16 1303 Physician Self Edit
--- NOTE | ~2016-07-17 | OR ---
PATIENT'S NAME: [facility] AGE: 50 Y [address] ROOM: [place] [address] LOCATION: GICU ADMIT DATE: 07/17/2016 OR/Procedure Report DISCHARGE DATE: FAMILY PHYSICIAN: Andre Lomax MD ATTENDING PHYSICIAN: Dominga Uribe SURGEON: Tani West MD PRODUCT LISTER: Sebas Fermin RN. DATE OF PROCEDURE: 07/22/2016 PROCEDURE: Right internal jugular 8.5-inch quad lumen central line placement. INDICATION FOR PROCEDURE: Need for central venous access secondary to poor peripheral venous access and need for administration of central venous acting medications. PREOPERATIVE DIAGNOSES: 1. Bilateral [id number] ischemic infarct of the cerebellum. 2. Hypertension. 3. Aortic valve replacement. 4. Descending thoracic aneurysm. 5. Gastroesophageal reflux disease. POSTOPERATIVE DIAGNOSES: 1. Bilateral jneqk-lg-powigykz ischemic infarct of the cerebellum. 2. Hypertension. 3. Aortic valve replacement. 4. Descending thoracic aneurysm. 5. Gastroesophageal reflux disease. COMPLICATIONS: None noted. ESTIMATED BLOOD LOSS: Minimal. CONSENT: Informed consent was obtained preoperatively including discussed risks, benefits, and alternatives. The patient and the family stated understanding of the above procedure risks, benefits, and alternatives and agreed for me to proceed. DESCRIPTION OF PROCEDURE: After induction of anesthesia, the patient placed in supine position. Ultrasound for confirmation of right internal jugular venous anatomy. Sterile prep with ChloraPrep to right neck. Sterile full- body drape, sterile gown, sterile gloves used. Surgical mask and cap worn at all times. Utilizing 16-gauge needle and my anterior approach, the right internal jugular vein was cannulated at first attempt without difficulty. Nonpulsatile blood flow. Dark blood aspirated. Over the wire, an 8.5-inch PATIENT'S NAME: [facility] AGE: 50 Y [address] ROOM: [place] [address] LOCATION: GICU ADMIT DATE: 07/17/2016 OR/Procedure Report DISCHARGE DATE: FAMILY PHYSICIAN: Andre Lomax MD ATTENDING PHYSICIAN: Dominga Uribe quad lumen central line was inserted to 16 cm without difficulty. Wire and needle removed intact. Catheter sutured in place. Sterile occlusive Tegaderm dressing applied. Stat portable chest x-ray will be ordered postoperatively. MD CAIT HULL/melissa /[id number] d: 07/23/16515 t: 08/11/16 0829, OPERATIVE SUMMARY
[2016-07-17] MEDS ORDERED: ZOVIRAX800 MG PO (14:17)
[2016-07-17] MEDS ORDERED: MECLIZINE HCL12.5 MG PO (14:19)
[2016-07-17] MEDS ORDERED: DELTASONE20 MG PO (14:19)
[2016-07-17] MEDS ORDERED: ZOFRAN4 MG PO (14:19)
[2016-07-17] MEDS ORDERED: ALEVE220 MG PO (14:20)
[2016-07-17] MEDS ORDERED: LOPRESSOR50 MG PO (14:20)
[2016-07-17] MEDS ORDERED: HYDRODIURIL25 MG PO (14:20)
[2016-07-17] MEDS ORDERED: GARLIC1 EAC1 PO (14:21)
[2016-07-17] MEDS ORDERED: POTASSIUM99 M1 PO (14:21)
[2016-07-17] MEDS ORDERED: VITAMIN E400 UNI2 PO (14:21)
[2016-07-17] MEDS ORDERED: BIOFLEX TABLET1 EACH PO (14:21)
[2016-07-17] MEDS ORDERED: CLARITIN10 MG PO (14:22)
[2016-07-17 14:26] LABS: BILIRUBIN URINE NEGATIVE (NEGATIVE); BLOOD URINE NEGATIVE /UL (NEGATIVE); COLOR URINE YELLOW (YELLOW); GLUCOSE URINE NEGATIVE (NEGATIVE); KETONE URINE NEGATIVE (NEGATIVE); LEUKOCYTES URINE NEGATIVE /UL (NEGATIVE); NITRITE URINE NEGATIVE (NEGATIVE); PROTEIN URINE NEGATIVE (NEGATIVE); TURBIDITY URINE CLEAR (CLEAR); UROBILINOGEN URINE NORMAL (NORMAL)
--- NOTE | 2016-07-17 16:33 | NUR ---
Significant Event: Patient admitted from [facility]. Patient has a cerebellar infarct. Patient has a NIH stroke scale of 0. Alert/oriented x3. No c/o pain/discomfort currently but did have a headache. Denied need for [place] for this. Afebrile, no cardiac arrhythmias observed. SBP hypertensive at times, but comes down on his own. /daughters at bedside. Follow up:
[2016-07-17 21:51] LABS: ESTIMATED GFR (MDRD EQUATION) > 60
--- NOTE | 2016-07-18 03:26 | NUR ---
Significant Event: A&Ox3. Denies N&T. No weakness. Pt states not dizzy at all does get slightly dizzy with quick movement. PERRLA. On tele SR runs hilda when sleeps. SBP 130s-180s to give hydralazine if SBP >160. RA lungs clear. Last BM 07/17. IV to L) AC running NS at 50ml/hr. Denies pain Follow up:
--- NOTE | 2016-07-18 11:14 | NUR ---
CONSULT FOR DIET EDUCATION PER STROKE PROTOCOL. PER PT, HAS PRIOR KNOWLEDGE OF HEART HEALTHY DIET EDUCATION. REVIEWED DIET AT HOME. PT DOES TABLE SALT HIS FOOD. DISCUSSED HEALTHY COOKING TIPS AND PORTION CONTROL. PER PT AND , DOES NOT EAT PROCESSED FOOD A LOT OTHER THAN LUCIO. LEFT DIET EDUCATION MATERIAL AND CONTACT INFORMATION WITH PT. WILL DEFER FULL ASSESSMENT TO LENGTH OF STAY.
--- NOTE | 2016-07-18 13:30 | NUR ---
Introduced self and role of care management to patient and . Most of conversation with as patient not feeling well. Patient and live in [place] and they have grown children. 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 She hopes he will be able to go home when ready for discharge. Will follow and see what his needs will be.
--- NOTE | 2016-07-18 13:42 | NUR ---
SIGNIFICANT EVENT: PATIENT ALERT, ORIENTED X3. SPEECH IS CLEAR, APPROPRIATE. NO FACIAL ASYMMETRY. PATIENT COMPLAINED OF HEADACHE AT THE BEGINING OF THE SHIFT, WITH AMBULATION AND REPOSITIONING PATIENT STATES HE IS COMFORTABLE AT THIS TIME, HEADACHE HAS NOT RE-OCCURED. PATIENT DENIES ANY NUMBNESS OR TINGLING, CHEST OR GENERALIZED PAIN. PATIENT STATES HE FEELS DIXXY AT TIMES. PATIENT MOVES ALL 4 EXTREMITIES SPONTANEOUSLY AND TO COMMANDS. EQUAL STRENGTH THROUGHOUT. PATIENT AMBULATED IN HALLWAYS X1, IN ROOM MULTIPLE TIMES THROUGHOUT THE DAY. PATIENT HAS BEEN IN SINUS RHYTHM, SCOTT AT TIMES. HR 55-80S. PULSES PALPABLE THROUGHOUT. HYPERTENSIVE THROUGHOUT THE DAY, LOGAN NEAL AND DR HASSAN NOTIFIED AND AWARE. SBP 130-190S. HYDRALAZINE IV GIVEN X1 FOR SBP 199. MAP>65. AFEBRILE. PATIENT HAS BEEN ON ROOM AIR, SATS MID TO UPPER 90S. BOWEL SOUNDS ACTIVE, NO BM. REGULAR DIET, DECREASED APETITE. PATIENT COMPLAINS OF NAUSEA/ VOMMITING. A TOTAL OF 350 ML EMISIS SO FAR. ZOFRAN GIVEN, RELIEF NOTED, LOGAN NEAL AND DR HASSAN AWARE OF N/V. ADEQUATE URINE OUTPUT. UP TO BATHROOM WITH GAITBELT AND A STAND BY ASSIST. L) A/C PIV, SALINE LOCKED. GREAT BLOOD RETURN. FOLLOW UP: CONTINUE TO MONITOR BP, NEURO STATUS
--- NOTE | 2016-07-19 05:08 | NUR ---
Significant Event: Pt is alert and orineted x3. Pupils are equal and reactive. Moves all extremieites spontaneously and to command. Hydralazine was given x1 for SBP's over 160. Pt ambulates with a stand by assist. Has goten dizzy at times. Pt did have some N/V this shift. Ambulates to the [facility] to void. No BM this shift. Regular diet. PIV in place. Follow up: Continue to monitor
--- NOTE | 2016-07-19 15:26 | NUR ---
Significant Event: PT A&O x3. VSS, on room air. PT c/o slight L)shoulder/neck pain, refused pain meds. No nausea this shift. No PRN BP meds given this shift. PT ambulates with SBA. Showered this shift. Ambulated in [place] with therapy. Voiding without difficulties. No BM this shift. Tolerating cardiac diet. Follow up:
--- NOTE | 2016-07-20 03:57 | NUR ---
Significant Event: Pt is alert and orineted x3. Moves all extremities spontaneously and to command. NIHSS score of 0. Pt did have one short instance of dizziness. No Nausea reported this shift. Ambulates to the [facility] to void. 1 BM this shift. PIV in place. Follow up: Dr. Mello to talk with pt.
--- NOTE | 2016-07-20 18:41 | NUR ---
Significant Event:A/O X 3. Reports no dizziness, nausea or vomiting. Ambulates independently, multiple laps in the [place] with holding his hand, patient walking near the handrail. Reports no headaches. Tolerating PO fluids and cardiac diet. Voids without problems. Report 1 BM. Showered, shampooed and shaved independently. Dr Mello consulted and explained Aortic aneurysm while patient observed images of MRI on computer. Dr Mello spoke to paient and about addressing the plan for follow up on the Aneurysm and would make recommendations before his dismissal. Dr Uribe here to round. Did not see Dr Suarez. Follow up:Home tomorrow.
--- NOTE | 2016-07-21 05:32 | NUR ---
Significant Event: Patient alert and oriented. NIHSS=0. Patient woken by MD at midnight and became dizzy. Around 0100 patient hilda with heart rates 40s and then vomited. Pressures elevated but came down to 150s on own after patient rested. Patient again became bradycardiac at 0330 and had emesis. Physician updated and EKG ordered. Patient to be discharged home today. Pleasant and cooperative with cares. Up ad terry, Follow up: pending discharge.
[2016-07-21 10:21] LABS: ALBUMIN 3.6 gm/dL (3.5-5.0); BLOOD UREA NITROGEN 13 mg/dL (6-24); CALCIUM 9.1 mg/dL (8.5-10.5); CHLORIDE 102 mMol/L (96-110); CO2 27 mMol/L (22-32); CREATININE 0.9 mg/dL (0.6-1.3); SODIUM 139 mMol/L (135-145)
[2016-07-21 10:25] LABS: ESTIMATED GFR (MDRD EQUATION) > 60
--- NOTE | 2016-07-21 12:30 | NUR ---
Spoke briefly with his . She says he is not doing as well today and will be going down for MRI. She says they have hoped he could go home today, but won't be now. She still hopes he will be able to go home when ready for discharge. Will follow.
--- NOTE | 2016-07-21 17:02 | NUR ---
Significant Event: PT A&O x3, drowsy. Hypertensive this shift, hydralazine PRN given x3. PT has had nausea/vomitting this shift, relieved with zofran last at 1600. PT has drank very little and ate nothing today. C/O face tingling, numb tongue, dizziness, ears aching. Ambulates with gait belt and 2 assist. IV restarted to R)hand. MRI showed new infarct area, MD's aware. Bath this shift. No BM. Follow up:
--- NOTE | 2016-07-22 04:43 | NUR ---
Significant Event: A/O. HAD R) EYE DEVIATION, SLURRED SPEECH AND BLURRED VISION AT BEGINNING OF SHIFT. GAVE MANNITOL X1. CT OF HEAD SHOWED NO SIGNIFICANT CHANGERS PER DR. LIZ. SYMPTOMS IMPROVING SLIGHTLY OVERNIGHT. TMAX OF 100.0, 99.0 THIS AM. HAD 1 EPISODE OF BRADYCARDIA WITH EMESIS. HR 60-80'S. SBP >200 AT BEGINNING OF SHIFT. STARTED ON CARDENE GTT, AT 7.5MG/HR CURRENTLY. PLACED ON 1L O2 WHILE SLEEPING D/T DESATTING TO 82% WHILE ASLEEP. HAD EMESIS X1, BROWN LIQUID. DR. INIGUEZ IN ROOM DURING. GAVE REGLAN X1 WITH RELIEF. HYPOACTIVE BOWEL SOUNDS. NO BM. MARGINAL UOP. ENCOURAGED TO EMPTY BLADDER BUT PATIENT REFUSED SEVERAL TIMES. BLADDER SCAN AFTER VOID SHOWED 130ML PRESENT. UP WITH 2PA, UNSTEADY ON FEET. Follow up: CONTINUE TO MONITOR.
[2016-07-22 05:12] LABS: BASOPHIL # 0.1 K/uL (0.0-0.2); BASOPHIL % 0.4 %; EOSINOPHIL # 0.1 K/uL (0.0-0.5); EOSINOPHIL % 0.4 %; HEMATOCRIT 47.5 % (37.0-53.0); HEMOGLOBIN 15.8 g/dL (12.0-17.0); IMMATURE GRANULOCYTE # 0.1 K/uL (0.0-0.3); IMMATURE GRANULOCYTE % 0.4 %; LYMPHOCYTE # 2.7 K/uL (0.8-4.0); LYMPHOCYTE % 22.1 %; MCH 29.9 pg (27.0-34.0); MCHC 33.3 gm/dL (32.0-36.5); MONOCYTE # 0.9 K/uL (0.0-1.0); MONOCYTE % 7.2 %; MPV 9.6 fl (9.4-12.4); NEUTROPHIL # (ANC) 8.6 K/uL (1.4-9.0); NEUTROPHIL % 69.5 %; NRBC % 0 /100WBC (0-0.00); PLATELET COUNT 249 K/uL (150-450); RBC 5.28 M/uL (4.00-6.00); RDW-CV 12.2 % (11.9-14.6); WBC 12.4 K/uL (4.0-11.0)
[2016-07-22 05:42] LABS: BLOOD UREA NITROGEN 11 mg/dL (6-24); CALCIUM 9.3 mg/dL (8.5-10.5); CHLORIDE 102 mMol/L (96-110); CO2 29 mMol/L (22-32); CREATININE 0.9 mg/dL (0.6-1.3); ESTIMATED GFR (MDRD EQUATION) > 60; PHOSPHORUS 3.8 mg/dL (2.5-4.9); SODIUM 139 mMol/L (135-145)
[2016-07-22 05:45] LABS: MAGNESIUM 2.5 mg/dL (1.8-2.6)
--- NOTE | 2016-07-22 12:53 | NUR ---
A - PT SCREENED DUE TO LOS. HT: 182.88 CM, 265# (120 KG), IBW 80.9 KG, %IBW 148%, BMI 35.9. CAME IN W/ STROKE AND NOW DEVELOPED ANOTHER STROKE PER SHIFT REPORT. LABS: GLU 103, CHOLESTEROL 256, TG 200. MEDS: VALIUM DIET: CL 07/22, CARDIAC WAS ORDERED 07/17. INTAKE WAS 75-100% UNTIL 07/21, REFUSED X3 MEALS. PT C/O NAUSEA. TOLERATING CL FINE AT DURING VISIT IN AM HEART HEALTHY DIET EDUCATION GIVEN ON 07/18. EST NEEDS: 7087-4260 KCAL (25-30 KCAL/KG IBW), 81-97 GRAMS PRO (1-1.2 GRAMS/KG IBW), FLUID NEEDS: 1ML/KCAL D - INADEQUATE ORAL INTAKE RELATED TO ALTERED GI FUNCTION EVIDENCED BY DIET DOWNGRADED TO CL AND REFUSED X3 MEALS. I - PT AGREED TO TRY ENSURE CLEAR BID. M/E - GOAL: ADVANCE DIET TOLERATED IN 3-5 DAYS. 1) WILL FOLLOW W/ DIET ADVANCEMENT, ORAL INTAKE AND ORAL SUPPLEMENT ACCEPTANCE.
--- NOTE | 2016-07-22 16:40 | NUR ---
Significant Event:A/Ox3. Follows commands. Spontaneous x4 extremities. Slight R) facial droop and some slurred speech. Limb ataxia in L) arm. Nystagmus present in all directions. Tingling to R) side of face. Double vision. NIHSS 4. Cardine gtt at 15 mg/hr. Hydralazine 20 mg given x1 for HTN. Pulses 2-2-2. No edema. 1L NC. Clear and dim lungs. Denies nausea. Active bowel sounds. No BM. Sips for breakfast. Refused lunch. Kinney drained 985 ml cloudy yellow urine. 2A pivot, very unsteady. C/o VÁZQUEZ in late afternoon but refused medication. PO BP meds started today Follow up: BP control
[2016-07-22 21:18] LABS: INR - (THERAPEUTIC) 1.08 (0.92-1.07); PROTIME 11.4 SECONDS (9.8-11.4)
[2016-07-23 04:01] LABS: BICARBONATE 28.9 mmol/L (18.0-23.0); PCO2 37 mmHg (35-45); PO2 157 mmHg (80-90)
[2016-07-23 04:29] LABS: ALBUMIN 3.2 gm/dL (3.5-5.0); ALK PHOS 76 IU/L (33-138); ALT 25 IU/L (12-78); ANION GAP 13.9 (10.0-19.0); AST 22 IU/L (10-40); BLOOD UREA NITROGEN 16 mg/dL (6-24); CALCIUM 8.6 mg/dL (8.5-10.5); CHLORIDE 105 mMol/L (96-110); CO2 25 mMol/L (22-32); CREATININE 1.1 mg/dL (0.6-1.3); ESTIMATED GFR (MDRD EQUATION) > 60; POTASSIUM 3.9 mMol/L (3.7-5.1); SODIUM 140 mMol/L (135-145); TOTAL BILIRUBIN 0.7 mg/dL (0.0-1.5); TOTAL PROTEIN 6.7 g/dL (6.0-8.4)
[2016-07-23 04:42] LABS: MAGNESIUM 2.4 mg/dL (1.8-2.6); PHOSPHORUS 2.1 mg/dL (2.5-4.9)
[2016-07-23 05:01] LABS: BASOPHIL % 0.2 %; EOSINOPHIL % 0.1 %; HEMATOCRIT 43.5 % (37.0-53.0); HEMOGLOBIN 14.6 g/dL (12.0-17.0); IMMATURE GRANULOCYTE # 0.1 K/uL (0.0-0.3); IMMATURE GRANULOCYTE % 0.5 %; LYMPHOCYTE # 1.1 K/uL (0.8-4.0); LYMPHOCYTE % 5.7 %; MCH 30.1 pg (27.0-34.0); MCHC 33.6 gm/dL (32.0-36.5); MCV 89.7 fl (83.0-98.0); MONOCYTE # 0.6 K/uL (0.0-1.0); MONOCYTE % 3.2 %; MPV 10.1 fl (9.4-12.4); NEUTROPHIL # (ANC) 17.2 K/uL (1.4-9.0); NEUTROPHIL % 90.3 %; NRBC % 0 /100WBC (0-0.00); PLATELET COUNT 274 K/uL (150-450); RBC 4.85 M/uL (4.00-6.00); RDW-CV 12.4 % (11.9-14.6)
--- NOTE | 2016-07-23 05:34 | NUR ---
patient is a/p posterior cranieectomy with duraplast,is sedated and vented does not follow simple commands,does not withdraw to partial nailbed pressure on lt arm and lt leg,does withdraw on the rt side,pupils are 3mm rounded equal and react to light,clear upper lungs sound diminished on the bases,a/c vent mode l5pkt=25%,fio2=40%,o.g tube to l.i.s follow up:continue to monitor patient's hemodynamic and neuro status closely.
--- NOTE | 2016-07-23 05:53 | NUR ---
Pt went down to surgery last night, back to ICU intubated with 8.0 ETT secured at 24cm at the lip. EtCO2 40. Vent settings AC 12, Vt 650, Peep 5, FiO2 weaned to 40%. BrSs diminished t/o, no secretions suctioned out of ETT. Continue per plan of care.
--- NOTE | 2016-07-23 11:05 | NUR ---
A - INTERDISCIPLINARY REFERRAL. S/P CRANI, VENT, SEDATED W/ PROPOFOL AT 10.8ML/OT=177 LIPIDS KCAL. NEW MEDS: CARAFATE, INSULIN. LABS: GLU 138, ALB 3.2, PO4 2.1. DIET: NPO. WAS ON CARDIAC, EATING 75-100% UNTIL 07/21. EST NEEDS: [id number] KCAL, 81-97 GRAMS PROTEIN, FLUID NEEDS: 1ML/KCAL D - INADEQUATE ORAL INTAKE RELATED TO INABILITY TO FEED ORALLY EVIDENCED BY INTUBATION/SEDATION. I - WHEN READY TO START ENTERAL NUTRITION, RECOMMEND PROMOTE WITH FIBER AT 80ML/HR WITH 25ML/HR WATER FLUSHES IF NO IV FLUID TO PROVIDE 2205 KCAL (W/ PROPOFOL), 120 GRAMS PROTEIN, 1595ML FREE WATER. M/E - GOAL: TO MEET >75% OF PT'S NEEDS VIA MOST APPROPRIATE ROUTE IN 2-4 DAYS.
--- NOTE | 2016-07-23 17:32 | NUR ---
Significant Event: Patient remains intubated, off sedation since 1220. Fentanyl gtt decreased from 100mcg/h to 50mcg/h. Tracks and opens eyes spontaneously.Follows commands consistently on right upper and lower extremities. Inconsistent with following command to squeeze left hand. No withdraw in left upper extremity. Opened ventric x3, drained total of 64ml clear CSF. Tem max 100.6, gave prn tylenolx2, fan on patient. SR-SB HR 58-60's. Goal to keep CPP 60-90. Joseluis gtt off at 1314. Did have to give 3 labetalol boluses late this afternoon after ventric was just closed.Has become more hypertensive with stimulation this afternoon. Overbreathes set vent rate. ETCO2 mid 30's. Lungs ascultated clear/diminshed. SPo2>98%.Spontaneous cough. Hypoactive bowel sounds, no BM this shift. OGT patent to LIS, did have some blood tinged output that cleared with flush. Accuchecks q4h, treated x1. Replaced 15mmol phos x1. Follow up:
[2016-07-24 04:44] LABS: BICARBONATE 27.7 mmol/L (18.0-23.0); PCO2 39 mmHg (35-45); PO2 133 mmHg (80-90)
[2016-07-24 05:07] LABS: ALBUMIN 2.9 gm/dL (3.5-5.0); ALK PHOS 69 IU/L (33-138); ALT 20 IU/L (12-78); AST 21 IU/L (10-40); BLOOD UREA NITROGEN 9 mg/dL (6-24); CALCIUM 8.1 mg/dL (8.5-10.5); CHLORIDE 112 mMol/L (96-110); CO2 26 mMol/L (22-32); CREATININE 0.7 mg/dL (0.6-1.3); ESTIMATED GFR (MDRD EQUATION) > 60; TOTAL BILIRUBIN 0.6 mg/dL (0.0-1.5); TOTAL PROTEIN 6.2 g/dL (6.0-8.4)
[2016-07-24 05:11] LABS: SODIUM 146 mMol/L (135-145)
[2016-07-24 05:16] LABS: BASOPHIL % 0.2 %; EOSINOPHIL % 0.1 %; HEMOGLOBIN 13.2 g/dL (12.0-17.0); IMMATURE GRANULOCYTE # 0.1 K/uL (0.0-0.3); IMMATURE GRANULOCYTE % 0.5 %; LYMPHOCYTE # 1.8 K/uL (0.8-4.0); LYMPHOCYTE % 10.7 %; MCH 30.2 pg (27.0-34.0); MCV 91.5 fl (83.0-98.0); MONOCYTE # 1.7 K/uL (0.0-1.0); MONOCYTE % 10.6 %; MPV 9.8 fl (9.4-12.4); NEUTROPHIL # (ANC) 12.8 K/uL (1.4-9.0); NEUTROPHIL % 77.9 %; NRBC % 0 /100WBC (0-0.00); PLATELET COUNT 248 K/uL (150-450); RBC 4.37 M/uL (4.00-6.00); RDW-CV 12.7 % (11.9-14.6)
[2016-07-24 05:17] LABS: WBC 16.5 K/uL (4.0-11.0)
[2016-07-24 05:24] LABS: INR - (THERAPEUTIC) 1.11 (0.92-1.07); PROTIME 11.7 SECONDS (9.8-11.4)
--- NOTE | 2016-07-24 06:05 | NUR ---
Significant Event: Patient drowsy, opens eyes spontaneously at times and to voice. Does not track. RUE, RLE follows commands. LLE withdraws. LUE hand grasp x2, unable to withdraw. SR, BP stable, hydralazine given x2 for CPP >90. A/C on vent, CPAP trial failed r/t increases BP and ICP. ICP range 5-30, ventric opened x6, clear CSF drained. Bowel sounds hypoactive, OG to LIS. Kinney intact, marginal dark yellow urine. No new skin issues. CT done this shift. Follow up: Continue
--- NOTE | 2016-07-24 15:26 | NUR ---
Pt. cont's intubation. ST plan to assess following extubation for cognitive/linguistic and swallow skills.
--- NOTE | 2016-07-24 16:41 | NUR ---
D: RESPIRATORY FAILURE I: V2OO, ALBUTEROL MDI R: BREATH SOUNDS SLIGHTLY COARSE TO DIMINISHED AND CLEAR, SXN- SMALL/MODERATE THICK WHITE/CREAM, ET TUBE SECURE, CUFF AT MINIMAL OCCLUSIVE PRESSURE, CPAP TRIAL TIMES 2- FAIL DUE TO INCREASE IN ICP P: CONTINUE CURRENT THERAPY
[2016-07-24 18:04] LABS: SODIUM 146 mMol/L (135-145)
--- NOTE | 2016-07-24 19:21 | NUR ---
Significant Event: Patient remains intubated without sedation. Follows command in right UE and LE. Withdraws in LLE. Flacid in LUE. Opened ventricx5, now open at all times to drain a total of 15-20ml CSF. CSF is clear and drained a total of 178ml.Ventric now at [id number].NA+and osmo serum checks qid. Hold mannitol if osmo>320. Call if na is out of goal parameter of 145-150. Goal to keep CPP 60-60, gave prn hydralazine x1.SR with HR 70-80's. Max temp 100, gave prn Tylenol x2.CVP 2-9.PRN dilaudid given x4.Lungs asculatated clear/dim-slightly coarse. OGT to lis, light brown bile. Hypoactive bowel sounds, no bm.New prn orders for senok and mom. To start Osmolite 1.5 to reach goal of 40ml/h within 12 hours. Kinney patent. ETCO2 mid 30's. Accuchecks q4h, did not treat. Follow up give kphos and recheck phos, continue to monitor.
[2016-07-24 23:58] LABS: SODIUM 145 mMol/L (135-145)
[2016-07-25 04:01] LABS: MAGNESIUM 2.6 mg/dL (1.8-2.6); PHOSPHORUS 2.2 mg/dL (2.5-4.9)
--- NOTE | 2016-07-25 05:33 | NUR ---
No vent changes made this shift. EtCO2 36-43 this shift in AC. BrSs diminished bases, suctioned small amounts of thick, white secretions from ETT. Possible SBT again today.
[2016-07-25 05:45] LABS: BICARBONATE 29.8 mmol/L (18.0-23.0); PCO2 40 mmHg (35-45); PO2 163 mmHg (80-90)
[2016-07-25 05:58] LABS: INR - (THERAPEUTIC) 1.11 (0.92-1.07); PROTIME 11.7 SECONDS (9.8-11.4); PTT 32 SECONDS (25-32)
[2016-07-25 06:06] LABS: ALBUMIN 2.4 gm/dL (3.5-5.0); ALK PHOS 80 IU/L (33-138); ALT 23 IU/L (12-78); ANION GAP 11.3 (10.0-19.0); AST 21 IU/L (10-40); BLOOD UREA NITROGEN 9 mg/dL (6-24); CALCIUM 8.3 mg/dL (8.5-10.5); CHLORIDE 112 mMol/L (96-110); CO2 28 mMol/L (22-32); CREATININE 0.7 mg/dL (0.6-1.3); ESTIMATED GFR (MDRD EQUATION) > 60; POTASSIUM 4.3 mMol/L (3.7-5.1); TOTAL BILIRUBIN 0.5 mg/dL (0.0-1.5); TOTAL PROTEIN 6.1 g/dL (6.0-8.4)
[2016-07-25 06:08] LABS: BASOPHIL % 0.3 %; EOSINOPHIL % 0.1 %; HEMOGLOBIN 12.6 g/dL (12.0-17.0); IMMATURE GRANULOCYTE # 0.1 K/uL (0.0-0.3); IMMATURE GRANULOCYTE % 0.5 %; LYMPHOCYTE # 1.5 K/uL (0.8-4.0); LYMPHOCYTE % 9.4 %; MCHC 32.3 gm/dL (32.0-36.5); MCV 92.9 fl (83.0-98.0); MONOCYTE # 1.4 K/uL (0.0-1.0); MONOCYTE % 9.1 %; MPV 9.8 fl (9.4-12.4); NEUTROPHIL # (ANC) 12.8 K/uL (1.4-9.0); NEUTROPHIL % 80.6 %; NRBC % 0 /100WBC (0-0.00); PLATELET COUNT 236 K/uL (150-450); RDW-CV 12.9 % (11.9-14.6); WBC 15.8 K/uL (4.0-11.0)
[2016-07-25 06:20] LABS: SODIUM 147 mMol/L (135-145)
--- NOTE | 2016-07-25 06:53 | NUR ---
PT SHOWING NEURO DECLINE THIS SHIFT, MINIMALLY RESPONSIVE AT THIS TIME. DR. JAMES UPDATED DURING NIGHT, DR. ELI UPDATED AT BEDSIDE WHILE GIVING ONCOMING RN REPORT. SEE CHART FOR NEW ORDERS THIS AM. PT DECLINE STARTED AT APPROX 2330 AFTER DIFFICULTY CONTROLLING HIGH BLOOD PRESSURES. PT DID NOT OPEN EYES SPONTANEOUSLY, TRACK, MOVE EXTREMITIES SPONTANEOUSLY, OR FOLLOW COMMANDS UNTIL 0500. AT THAT TIME, PT WAS ABLE TO MOVE RLE AND SQUEEZE THIS RN'S HAND WITH RUE. HE WAS ALSO ABLE TO OPEN EYES TO PAIN. SOON AFTER ASSESSMENT, BLOOD PRESSURE SPIKED UP TO 180S-200S SBP AND WAS TREATED WITH PRN ANTI-HYPERTENSIVES. PT STOPPED FOLLOWING COMMANDS OR MOVING SPONTANEOUSLY AGAIN. BRADYCARDIA (HR=45) NOTED FOR SEVERAL MINUTES PRIOR TO EACH EPISODE OF HYPERTENSION. TMAX 99.9, 650 MG APAP GIVEN WITH POSITIVE EFFECT. ETCO2 38-43 THIS SHIFT, OVERBREATHES VENT SLIGHTLY. NEW ORDER THIS AM TO INCREASE RR TO 14. TF STARTED AT 15 ML/HR; HIGH RESIDUALS NOTED (240 THEN 105), SO RATE NOT INCREASED. NO BM THIS SHIFT. UOP APPROPRIATE. CHIOMA CORREA, RN
--- NOTE | 2016-07-25 11:21 | NUR ---
ST cont. to follow-up with pt. to complete swallow and cognitive/linguistic assesssment. Nsg. reported change in neuro status during night and early a.m. Pt. cont's to be intubated at this time with decreased voluntary and sponteneous movement of limbs per nsg. report. ST plan to cont. to follow.
[2016-07-25 11:32] LABS: SODIUM 147 mMol/L (135-145)
--- NOTE | 2016-07-25 13:00 | NUR ---
Spoke with patient's . She says his siblings are starting to take turns being here and she was able to go home yesterday and handle somethings at home. She says they do have an insurance policy that pays for certain diagnosis and the agent is sending her paperwork to complete. She asks if we can help her. Told her I will try and let me know when she has it. She says she talked to his employer and he already was on FMLA due to issues dealing with before admission and they had her take something to his local PCP to provide follow up for them. She says their children are doing OK and she was able to see them and the grandchildren when she went home. Will follow.
--- NOTE | 2016-07-25 13:12 | NUR ---
A-NUTRITION CONSULT RECEIVED FOR TF RECOMMENDATIONS; NO WATER FLUSHES. GOAL FOR NA+ IS 145-150, PER MD. ON THE VENT; NO SEDATION. ICP/VENTRIC. UOP IS INCREDASED. (+)BS. LABS: NA 147, K+ 4.3, GLU 128, BUN 9, VACUUM CLEANER REPAIRER 0.7, ALB 2.4 DIET RX: NPO; OSMOLITE 1.5 AT 40 ML/HR; THIS IS AT GOAL, ORDERED. CURRENT TF RATE IS PROVIDING 1440 KCALS (71% OF THE LOW END OF KCAL NEEDS), 60 GM PROTEIN (74% OF THE LOW END OF PROTEIN NEEDS), AND 732 ML FREE WATER. EST NUTR NEEDS: 4123-8986 KCALS AND 81-97 GM PROTEIN D-AT NUTRITION RISK W/DIFF. SWALLOWING R/T VENT SUPPORT AEB NEED FOR EN I-1)IN ORDER TO MEET NUTR. NEEDS, GOAL RATE OF OSMOLITE NEEDS TO BE INCREASED TO 60 ML/HR. THIS WILL PROVIDE 2160 KCALS, 90 GM PROTEIN, AND 1097 ML FREE WATER. 2)IF UNBLE TO ADVANCE OSMOLITE 1.5 TO 60 ML/HR D/T VOLUME CONCERNS, RECOMMEND CHANGING TF PRODUCT TO TWOCAL HN AT A GOAL RATE OF 45 ML/HR. THIS WILL PROVIDE 2160 KCALS, 90 GM PROTEIN, AND 756 ML FREE WATER. M/E-GOAL: TF TO MEET NUTR. NEEDS 1)F/U TF AND POC IN 3-4 DAYS 2)ASSIST NEEDED
[2016-07-25 16:50] LABS: ALBUMIN 2.4 gm/dL (3.5-5.0); ANION GAP 10.2 (10.0-19.0); BLOOD UREA NITROGEN 9 mg/dL (6-24); CALCIUM 8.1 mg/dL (8.5-10.5); CHLORIDE 110 mMol/L (96-110); CO2 29 mMol/L (22-32); CREATININE 0.7 mg/dL (0.6-1.3); ESTIMATED GFR (MDRD EQUATION) > 60; PHOSPHORUS 2.2 mg/dL (2.5-4.9); POTASSIUM 4.2 mMol/L (3.7-5.1); SODIUM 145 mMol/L (135-145)
--- NOTE | 2016-07-25 17:23 | NUR ---
Significant Event: Continues on vent. CT done this AM due to decreased LOC. Phenylephrine bolues given and infusion started for short time this AM. Labetalol and hydralazine given IVP this afternoon. Fentanyl gtt off. Pt is increasingly responsive. Opens eyes at times and follows commands with right arm. Family at bedside throughout the day. Follow up: continue
--- NOTE | 2016-07-25 17:28 | NUR ---
D: CEREBELLAR INFARCT I: VENT, MDI R: PT REMAINED ON 40% FIO2, BS C&D IN UPPER LOBES & DIM IN BASES, SXNED OUT SMALL THICK WHITE SECRETIONS, TOOK PT TO CT FOR SCANS TO DUE CHANGE IN LOC, NO OTHER SIGNIFICANT CHANGES T/O DAY P: CONT.8
--- NOTE | 2016-07-26 04:34 | NUR ---
Patient remained at 40% FiO2 through out the shift. Breath sounds have been coarse to slightly coarse. Suctioning large amounts of thick yellow from patient. Will continue to monitor.
[2016-07-26 05:18] LABS: BICARBONATE 29.2 mmol/L (18.0-23.0); PCO2 42 mmHg (35-45)
[2016-07-26 05:20] LABS: PO2 99 mmHg (80-90)
--- NOTE | 2016-07-26 05:37 | NUR ---
Significant Event: NO SEDATION. OPENS EYES TO SOUND/COMMAND AT TIMES. FOLLOWS COMMANDS ON R) EXTREMITIES AT TIMES. W/D IN L) LOWER, NO W/D IN L) UPPER. VENTRIC OPEN AT ALL TIMES. 172ML CLEAR CSF DRAINED OVERNIGHT. ICP WNL. TMAX OF 100.0. GAVE TYLENOL X2. HR 70-90'S. DID HAVE 2 EPISODES OF BRADYCARDIA, HR TO 40'2, THEN WOULD REBOUND TO 70'S. WOULD HAVE HYPERTENSION WITH THESE EPISODES, SBP >200. CPP 90-100'S. GAVE PRN HYDRALAZINE X 6, PRN LABETOLOL GIVEN X7. CPP LOW THIS AM. GAVE SAHIL BOLUS X3. CONTINUES ON VENT, A/C, 40%. OVERBREATHES AT TIMES. LUNG SOUNDS COARSE, CLEARS WITH SUCTIONING. CREAMY SPUTUM AT TIMES. TF AT 40ML/HR, MAX RESIDUAL 170ML. NO BM OVERNIGHT. GOOD UOP. TURNED Q2HR. SHIVERING NOTED AT TIMES. Follow up: CONTINUE TO MONITOR.
[2016-07-26 05:49] LABS: ALBUMIN 2.3 gm/dL (3.5-5.0); ALK PHOS 97 IU/L (33-138); ALT 36 IU/L (12-78); ANION GAP 11.1 (10.0-19.0); AST 27 IU/L (10-40); BLOOD UREA NITROGEN 10 mg/dL (6-24); CALCIUM 8.6 mg/dL (8.5-10.5); CHLORIDE 110 mMol/L (96-110); CO2 27 mMol/L (22-32); CREATININE 0.7 mg/dL (0.6-1.3); ESTIMATED GFR (MDRD EQUATION) > 60; POTASSIUM 4.1 mMol/L (3.7-5.1); SODIUM 144 mMol/L (135-145); TOTAL BILIRUBIN 0.4 mg/dL (0.0-1.5); TOTAL PROTEIN 6.5 g/dL (6.0-8.4)
[2016-07-26 05:54] LABS: HEMATOCRIT 39.7 % (37.0-53.0); HEMOGLOBIN 12.6 g/dL (12.0-17.0); MCH 30.1 pg (27.0-34.0); MCHC 31.7 gm/dL (32.0-36.5); MCV 94.7 fl (83.0-98.0); MPV 9.9 fl (9.4-12.4); PLATELET COUNT 282 K/uL (150-450); RBC 4.19 M/uL (4.00-6.00); RDW-CV 13.2 % (11.9-14.6)
[2016-07-26 05:56] LABS: WBC 16.1 K/uL (4.0-11.0)
[2016-07-26 06:20] LABS: ABSOLUTE NEUTROPHIL CT (ANC) 13.7 K/uL (1.4-9.0); BANDED NEUTROPHIL # 0.5 K/uL (0.0-0.1); BANDED NEUTROPHILS % 3 %; LYMPHOCYTE # 1.6 K/uL (0.8-4.0); LYMPHOCYTE % 10 %; MONOCYTE # 0.8 K/uL (0.0-1.0); SEGMENTED NEUTROPHIL # 13.2 K/uL (1.4-9.0); SEGMENTED NEUTROPHIL % 82 %
--- NOTE | 2016-07-26 08:31 | NUR ---
Speech Tx Note: Speech continues to follow pt to initiate swallowing evaluation when pt able to participate. Per nursing, pt continue to be intubated. Will continue monitor and determine best direction for speech Tx at this time. Jacqueline Orozco M.A. KIERAN-[employer]OB SETTER [employer]ING
[2016-07-26 14:18] LABS: SODIUM 148 mMol/L (135-145)
--- NOTE | 2016-07-26 15:40 | NUR ---
Significant Event: Patient has been more awake as the shift as progressed. Patient had eyes fully opened and waved to nurse with his right hand. Other times he is more somulent. PERRLA. Has a cough and a gag reflex. Overbreathes set rate on ventilator at times. Purposeful and follows commands to right sided extremities, occasionally the LLE. LUE is flaccid and does not move, but can tell he has sensation there as he grimaces with painful stimuli. ICP has been consistently 6-10. Ventriculostomy is open at all times, and only closing Q1H for readings. High temp of 100.9 this shift. Received Tylenol x2 this shift. Did give MOM/senna this shift. NO BM observed. Good UOP with gustafson catheter. Bath given. Blankets wer placed more under the patient's shoulders to help hold the head forward and decrease the swelling of the patient's neck r/t bone flap. Dressings changed to his head this shift as well. Follow up:
[2016-07-26 21:12] LABS: ALBUMIN 2.2 gm/dL (3.5-5.0); BLOOD UREA NITROGEN 13 mg/dL (6-24); CALCIUM 8.5 mg/dL (8.5-10.5); CHLORIDE 113 mMol/L (96-110); CO2 26 mMol/L (22-32); CREATININE 0.8 mg/dL (0.6-1.3); ESTIMATED GFR (MDRD EQUATION) > 60; PHOSPHORUS 2.1 mg/dL (2.5-4.9)
[2016-07-26 21:13] LABS: SODIUM 149 mMol/L (135-145)
--- NOTE | 2016-07-27 05:26 | NUR ---
PT. ON VENT AT 40% WITH SATS 96-98%. ETCO2 36-40. BREATH SOUNDS ARE CLEAR AND DIMINISHED T/O. SUCTIONED A SMALL TO MODERATE AMOUNT OF THICK CREAMY SECRETIONS. WILL CONTINUE TO MONITOR.
[2016-07-27 05:50] LABS: BICARBONATE 28.2 mmol/L (18.0-23.0); PCO2 37 mmHg (35-45); PO2 116 mmHg (80-90)
[2016-07-27 06:08] LABS: ALBUMIN 2.1 gm/dL (3.5-5.0); ALK PHOS 94 IU/L (33-138); ALT 93 IU/L (12-78); ANION GAP 12.9 (10.0-19.0); AST 64 IU/L (10-40); BLOOD UREA NITROGEN 14 mg/dL (6-24); CHLORIDE 114 mMol/L (96-110); CO2 26 mMol/L (22-32); CREATININE 0.6 mg/dL (0.6-1.3); ESTIMATED GFR (MDRD EQUATION) > 60; POTASSIUM 3.9 mMol/L (3.7-5.1); TOTAL BILIRUBIN 0.4 mg/dL (0.0-1.5); TOTAL PROTEIN 6.2 g/dL (6.0-8.4)
[2016-07-27 06:10] LABS: HEMATOCRIT 37.2 % (37.0-53.0); HEMOGLOBIN 11.8 g/dL (12.0-17.0); MCHC 31.7 gm/dL (32.0-36.5); MCV 94.7 fl (83.0-98.0); MPV 9.6 fl (9.4-12.4); PLATELET COUNT 266 K/uL (150-450); RBC 3.93 M/uL (4.00-6.00); RDW-CV 12.9 % (11.9-14.6); WBC 11.5 K/uL (4.0-11.0)
[2016-07-27 06:14] LABS: SODIUM 149 mMol/L (135-145)
[2016-07-27 06:40] LABS: ABSOLUTE NEUTROPHIL CT (ANC) 8.9 K/uL (1.4-9.0); BANDED NEUTROPHIL # 0.2 K/uL (0.0-0.1); BANDED NEUTROPHILS % 2 %; LYMPHOCYTE # 2.1 K/uL (0.8-4.0); LYMPHOCYTE % 18 %; MONOCYTE # 0.6 K/uL (0.0-1.0); SEGMENTED NEUTROPHIL # 8.6 K/uL (1.4-9.0); SEGMENTED NEUTROPHIL % 75 %
--- NOTE | 2016-07-27 06:46 | NUR ---
Significant Event: DROWSY AT TIMES. FOLLOWED COMMANDS MOST OF NIGHT. ABLE TO GIVE THUMBS UP, PEACE SIGN, "OK" SIGN. 120ML OUT OF VENTRIC. ICP HIGH WHEN REPOSITIONING, HIGH IN 40'S, WOULD REBOUND WITHIN SEVERAL MINUTES. HR 70-100'S. TMAX OF 101.7. GAVE TYLENOL X2. COLLING BLANKET UNDER PATIENT. NOTIFIED DR. KIRK. CSF, BLOOD, AND URINCE CULTURES OBTAINED. CSF NEGATIVE FOR BACTERIA. STARTED ON VANCO, MEROPENEM, AND LEVAQUIN. GAVE HYDRALAZINE AND LABETOLOL X1 EACH FOR CPP 90-110'S. CREAMY SPUTUM FROM ETT. LUNG SOUNDS SLIGHTLY COARES. MAX RESIDUAL OF 240ML. HYPOACTIVE BOWEL SOUNDS. NO BM. 635ML UOP. TURNED Q2HR. Follow up: CONTINUE TO MONITOR
[2016-07-27 12:03] LABS: SODIUM 146 mMol/L (135-145)
[2016-07-27 12:57] LABS: MAGNESIUM 2.5 mg/dL (1.8-2.6); POTASSIUM 3.9 mMol/L (3.7-5.1)
--- NOTE | 2016-07-27 14:15 | NUR ---
Significant Event: Patient was awake most of the shift and following commands with his right sided extremities, until 1100 when 100mcg of Fentanyl and 2mg of versed was given for uncontrolled CPP and high ICP problems after going to CT scan. Ventriculostomy remains open at all times, just closing hourly for accurate readings. Hydralizine given x1 this shift, Trandate given several times, and now started on PO trandate. Joseluis bolus given x1 this shift as well to maintain CPP 60-90. High tempo of 101.3 which was right after CT scan, patient was given Tylenol for this as well. Tolerating TF well largest residual was 240 so far. Continues on Vancomycin, merrpenum, and levaquin. Lasix given x1 this shift. Follow up:
--- NOTE | 2016-07-27 17:26 | NUR ---
D: RESPIRATORY FAILURE I: V2OO, ALBUTEROL MDI R: BREATH SOUNDS SLIGHTLY COARSE TO DIMINISHED AND CLEAR, DECREASED LOWER LOBES, SXN- SMALL/MODERATE THICK YELLOW, ETCO2 32-35, TRANSPORT TO CT TIMES 1, VT INCREASED TO 750, CUFF AT MINIMAL OCCLUSIVE PRESSURE, ET TUBE SECURE P: CONTINUE CURRENT THERAPY
[2016-07-27 21:00] LABS: ALBUMIN 2.3 gm/dL (3.5-5.0); ANION GAP 13.7 (10.0-19.0); BLOOD UREA NITROGEN 18 mg/dL (6-24); CALCIUM 8.4 mg/dL (8.5-10.5); CHLORIDE 113 mMol/L (96-110); CO2 24 mMol/L (22-32); CREATININE 0.8 mg/dL (0.6-1.3); ESTIMATED GFR (MDRD EQUATION) > 60; PHOSPHORUS 2.8 mg/dL (2.5-4.9); POTASSIUM 3.7 mMol/L (3.7-5.1)
[2016-07-27 21:01] LABS: SODIUM 147 mMol/L (135-145)
[2016-07-28 05:07] LABS: BICARBONATE 26.9 mmol/L (18.0-23.0); PCO2 28 mmHg (35-45); PO2 204 mmHg (80-90)
--- NOTE | 2016-07-28 05:17 | NUR ---
PT. ON VENT 40% DROPPED TO 30% WITH SATS 98-100%. ETCO2 32-38. BREATH SOUNDS HAVE BEEN SLIGHTLY COARSE T/O. SUCTIONED A SMALL TO MODERATE AMOUNT OF THICK YELLOW SECRETIONS. WILL CONTINUE TO MONITOR UNTIL FURTHER NOTICE.
[2016-07-28 05:20] LABS: HEMATOCRIT 35.2 % (37.0-53.0); HEMOGLOBIN 11.4 g/dL (12.0-17.0); MCH 29.9 pg (27.0-34.0); MCHC 32.4 gm/dL (32.0-36.5); MCV 92.4 fl (83.0-98.0); MPV 9.5 fl (9.4-12.4); PLATELET COUNT 262 K/uL (150-450); RBC 3.81 M/uL (4.00-6.00); RDW-CV 12.7 % (11.9-14.6)
[2016-07-28 05:27] LABS: ALBUMIN 2.2 gm/dL (3.5-5.0); ALK PHOS 94 IU/L (33-138); ALT 131 IU/L (12-78); AST 85 IU/L (10-40); BLOOD UREA NITROGEN 17 mg/dL (6-24); CALCIUM 8.3 mg/dL (8.5-10.5); CHLORIDE 111 mMol/L (96-110); CO2 25 mMol/L (22-32); CREATININE 0.7 mg/dL (0.6-1.3); ESTIMATED GFR (MDRD EQUATION) > 60; POTASSIUM 3.6 mMol/L (3.7-5.1); TOTAL PROTEIN 6.2 g/dL (6.0-8.4)
[2016-07-28 05:31] LABS: ANION GAP 13.6 (10.0-19.0); SODIUM 146 mMol/L (135-145); TOTAL BILIRUBIN 0.5 mg/dL (0.0-1.5)
[2016-07-28 06:00] LABS: ABSOLUTE NEUTROPHIL CT (ANC) 8.1 K/uL (1.4-9.0); BANDED NEUTROPHIL # 0.3 K/uL (0.0-0.1); BANDED NEUTROPHILS % 3 %; LYMPHOCYTE # 2.2 K/uL (0.8-4.0); LYMPHOCYTE % 20 %; MONOCYTE # 0.3 K/uL (0.0-1.0); SEGMENTED NEUTROPHIL # 7.8 K/uL (1.4-9.0); SEGMENTED NEUTROPHIL % 71 %
--- NOTE | 2016-07-28 06:58 | NUR ---
Significant Event: ALERT AT TIMES. ABLE TO FOLLOW COMMANDS ON R). MORE DROWSY AFTER MIDNIGHT BUT WAKES WITH STIMULI. HAD TO CLOSE VENTRIC X3 FOR OUTPUT >20ML/HR, THEN REOPEN FOR NEXT HOUR. HAD 121ML TOTAL OUT OF VENTRIC. CONTINUES ON VENT, A/C. RT DECREASED FIO2 TO 30%. SLIGHTLY COARES LUNG SOUNDS. HR 60-70'S. GAVE HYDRALAZINE X1, LABETOLOL X3. MAX RESIDUAL OF 300ML. NO BM OVERNIGHT. TREATED ACCUCHECKS X1. GAVE ALBUMIN AND LASIX PER MD ORDER. HAD 2310ML UOP OVERNIGHT. GAVE FENTANYL PRN X1 PER /PATIENT REQUEST. TURNED Q2HR. Follow up: CONTINUE TO MONITOR.
--- NOTE | 2016-07-28 10:34 | NUR ---
A-NUTRITION F/U ON THE VENT; NO SEDATION. ALERT/FOLLOWS COMMANDS ON THE R)SIDE; L)SIDE FLACCID, ICP/VENTRIC IN PLACE; VENTRIC OPEN ALL THE TIME. HEAVILY DIURESED THIS WEEKED; LASIX AND ALBUMIN GIVEN. (+)BM. TF RESIDUALS HAVE BEEN 120-300 ML. LABS: NA 146, K+ 3.6, GLU 166, BUN 17, CHERRY DIPPER 0.7, ALB 2.2 MEDS: LEVAQUIN, TRANDATE, VERSED, SUBLIMAZE, MERREM, VANCO DIET RX: NPO; OSMOLITE 1.5 AT GOAL RATE OF 60 ML/HR. THIS IS PROVIDING 2160 KCALS, 90 GM PROTEIN, AND 1097 ML FREE WATER. EST NUTR NEEDS: 6095-6321 KCALS AND 81-97 GM PROTEIN D-AT NUTRITION RISK W/DIFF. SWALLOWING R/T VENT SUPPORT AEB NEED FOR EN I-CONTINUE W/CURRENT DIET RX M/E-GOAL: PT WILL TOLERATE TF WITHOUT DIFFICULTY AND TF WILL MEET NUTR. NEEDS 1)F/U TF, GI, RESP. STATUS, AND POC IN 2-3 DAYS 2)ASSIST NEEDED
[2016-07-28 13:56] LABS: SODIUM 144 mMol/L (135-145)
--- NOTE | 2016-07-28 16:53 | NUR ---
PT VENTED ON 30% SATS 98-100%, BREATH SOUNDS CLEAR AND DIMINISHED WHILE SLIGHTLY COARSE AT TIMES, SXN A SMALL AMOUNT OF WHITE SPUTUM, ETCO2 36-40 MOST OF THE DAY, WILL CONTINUE TO WEAN PT TOLERATES.
--- NOTE | 2016-07-28 18:39 | NUR ---
Significant Event: Patient alert all day and following commands to right sided extremities. Withdraws to left lower ext, and does not withdraw to LUE. ICP/VENTRIC. Ventric open at all times, closing q1h for readings. Draining clear CSF. All cultures remain negative. Levaquin discontinued this shift. Fio2 30%, and tolerating vent well. Did have some irregular respiratory patter this AM, but RR was decreased and then this stopped. Started on oxycodone this shift. Accuchecks changed to q6h mild sliding scale. High residual of 240ml. No BM's this shift. at bedside throughout the day. High temp of 100.3 Follow up:
[2016-07-28 20:47] LABS: HEMATOCRIT 36.5 % (37.0-53.0); HEMOGLOBIN 11.6 g/dL (12.0-17.0)
[2016-07-28 21:00] LABS: ALBUMIN 2.3 gm/dL (3.5-5.0); BLOOD UREA NITROGEN 19 mg/dL (6-24); CALCIUM 8.5 mg/dL (8.5-10.5); CHLORIDE 110 mMol/L (96-110); CO2 31 mMol/L (22-32); CREATININE 0.7 mg/dL (0.6-1.3); ESTIMATED GFR (MDRD EQUATION) > 60; PHOSPHORUS 3.2 mg/dL (2.5-4.9); SODIUM 146 mMol/L (135-145)
--- NOTE | 2016-07-29 05:12 | NUR ---
PT. ON VENT 30% WITH SATS 98-100%. ETCO2 36-38. BREATH SOUNDS ARE SLIGHTLY COARSE IN THE UPPERS AT TIMES CLEARS WITH SUCTION. SUCTIONED A SMALL AMOUNT OF THICK YELLOW SECRETIONS. WILL CONTINUE TO MONITOR UNTIL FURTHER NOTICE.
[2016-07-29 05:32] LABS: BICARBONATE 27.8 mmol/L (18.0-23.0); PCO2 34 mmHg (35-45); PO2 147 mmHg (80-90)
[2016-07-29 05:57] LABS: ALBUMIN 2.2 gm/dL (3.5-5.0); ALK PHOS 96 IU/L (33-138); ALT 147 IU/L (12-78); ANION GAP 13.7 (10.0-19.0); AST 76 IU/L (10-40); BLOOD UREA NITROGEN 20 mg/dL (6-24); CALCIUM 8.3 mg/dL (8.5-10.5); CHLORIDE 109 mMol/L (96-110); CO2 25 mMol/L (22-32); CREATININE 0.7 mg/dL (0.6-1.3); ESTIMATED GFR (MDRD EQUATION) > 60; POTASSIUM 3.7 mMol/L (3.7-5.1); SODIUM 144 mMol/L (135-145); TOTAL BILIRUBIN 0.4 mg/dL (0.0-1.5); TOTAL PROTEIN 6.2 g/dL (6.0-8.4)
[2016-07-29 06:04] LABS: HEMATOCRIT 35.6 % (37.0-53.0); HEMOGLOBIN 11.5 g/dL (12.0-17.0); MCH 29.6 pg (27.0-34.0); MCHC 32.3 gm/dL (32.0-36.5); MCV 91.8 fl (83.0-98.0); MPV 9.6 fl (9.4-12.4); PLATELET COUNT 302 K/uL (150-450); RBC 3.88 M/uL (4.00-6.00); RDW-CV 12.3 % (11.9-14.6); WBC 11.7 K/uL (4.0-11.0)
--- NOTE | 2016-07-29 07:04 | NUR ---
PT CONTINUES INTUBATED WITH NEURO CHECKS Q1H. CONTINUES TO FOLLOW COMMANDS, ATTEMPTS TO COMMUNICATE WITH STAFF/. LETHARGIC IN SECOND HALF OF SHIFT BUT ABLE TO BE AROUSED WITH REPEATED STIMULATION. STARTING TO ATTEMPT TO PULL AT LINES WHILE AWAKE, BUT EASILY CALMED TO WHERE HE WAS NOT GRABBING LINES. PERSISTENT HICCUPS NOTED THROUGHOUT SHIFT; MENTIONED TO DR. LIZ WHEN HE ROUNDED ON PATIENT AND ORDER WRITTEN FOR THORAZINE. THORZINE ADMINISTERED X1 DOSE WITH MINIMAL EFFECT. HICCUPS NOTED TO BE MORE FREQUENT AND INTENSE AT END OF SHIFT THOUGH. PRN LEBETALOL GIVEN X1 DOSE FOR CPP>90. CSF DRAINAGE PER HOUR VARIABLE FROM 0-20 ML. ONLY ONE HOUR VENTRIC NEEDED TO BE CLOSED TO PREVENT OVERDRAINAGE. CHIOMA CORREA RN
[2016-07-29 07:38] LABS: BANDED NEUTROPHIL # 0.5 K/uL (0.0-0.1); BANDED NEUTROPHILS % 4 %; LYMPHOCYTE # 2.6 K/uL (0.8-4.0); LYMPHOCYTE % 18 %; MONOCYTE # 0.8 K/uL (0.0-1.0)
[2016-07-29 07:43] LABS: ABSOLUTE NEUTROPHIL CT (ANC) 7.6 K/uL (1.4-9.0); SEGMENTED NEUTROPHIL # 7.1 K/uL (1.4-9.0); SEGMENTED NEUTROPHIL % 61 %
--- NOTE | 2016-07-29 16:46 | NUR ---
PT VENTED ON 30% SATS 98-100%, BREATH SOUNDS SLIGHTLY COARSE AT TIMES BUT CLEARS SOME WITH SXN, SXN A SMALL AMOUNT OF CREAMY SPUTUM, ETCO2 34-38 MOST OF THE DAY, WILL CONTINUE TO WEAN PT TOLERATES AND TRY TO EXTUBATE
--- NOTE | 2016-07-29 17:23 | NUR ---
Significant Event: Continues on vent without sedation. Increasing alertness throughout the day. Opens eyes to sound and follows commands with R)arm and R)leg. Tube feeding restarted with max residual 75mL this shift. Ventric remains open with clear CSF drainage. Up to chair and back to bed with full lift; tolerated well. Pt's at bedside throughout the day. Follow up: continue
[2016-07-29 21:31] LABS: ALBUMIN 2.2 gm/dL (3.5-5.0); BLOOD UREA NITROGEN 21 mg/dL (6-24); CALCIUM 8.1 mg/dL (8.5-10.5); CHLORIDE 108 mMol/L (96-110); CO2 27 mMol/L (22-32); CREATININE 0.7 mg/dL (0.6-1.3); ESTIMATED GFR (MDRD EQUATION) > 60; PHOSPHORUS 3.1 mg/dL (2.5-4.9); SODIUM 144 mMol/L (135-145)
[2016-07-30 05:31] LABS: BICARBONATE 30.2 mmol/L (18.0-23.0); PCO2 37 mmHg (35-45); PO2 123 mmHg (80-90)
[2016-07-30 05:52] LABS: ALBUMIN 2.1 gm/dL (3.5-5.0); ALK PHOS 90 IU/L (33-138); ALT 133 IU/L (12-78); AST 60 IU/L (10-40); BLOOD UREA NITROGEN 22 mg/dL (6-24); CALCIUM 8.2 mg/dL (8.5-10.5); CHLORIDE 109 mMol/L (96-110); CO2 27 mMol/L (22-32); CREATININE 0.7 mg/dL (0.6-1.3); ESTIMATED GFR (MDRD EQUATION) > 60; SODIUM 144 mMol/L (135-145); TOTAL PROTEIN 5.8 g/dL (6.0-8.4)
[2016-07-30 05:56] LABS: TOTAL BILIRUBIN 0.5 mg/dL (0.0-1.5)
--- NOTE | 2016-07-30 06:00 | NUR ---
PT REMAINS INTUBATED. LESS OVERBREATHING OF VENT THIS SHIFT. HICCUPS ONLY NOTED FOR BRIEF INTERVALS X2 EPISODES. SEE NEURO ASSESSMENT CHARTING FOR VARIABILITY THROUGHOUT SHIFT. TOTAL VENTRIC DRAINAGE 95 ML OF CLEAR CSF. EPISODIC LOW BP, PM DOSE OF PO LOPRESSOR HELD PER DR. JAMES. TF CONTINUES, RESIDUALS 5-120 ML. NO BM THIS SHIFT. UOP APPROPRIATE. CHIOMA CORREA RN
[2016-07-30 06:29] LABS: HEMOGLOBIN 10.6 g/dL (12.0-17.0); MCH 29.8 pg (27.0-34.0); MCHC 32.1 gm/dL (32.0-36.5); MCV 92.7 fl (83.0-98.0); MPV 9.7 fl (9.4-12.4); PLATELET COUNT 273 K/uL (150-450); RBC 3.56 M/uL (4.00-6.00); RDW-CV 12.1 % (11.9-14.6); WBC 9.7 K/uL (4.0-11.0)
[2016-07-30 07:05] LABS: ABSOLUTE NEUTROPHIL CT (ANC) 6.6 K/uL (1.4-9.0); BANDED NEUTROPHIL # 0.3 K/uL (0.0-0.1); BANDED NEUTROPHILS % 3 %; LYMPHOCYTE # 2.4 K/uL (0.8-4.0); LYMPHOCYTE % 23 %; MONOCYTE # 0.4 K/uL (0.0-1.0); SEGMENTED NEUTROPHIL # 6.3 K/uL (1.4-9.0); SEGMENTED NEUTROPHIL % 65 %
--- NOTE | 2016-07-30 11:59 | NUR ---
A - NUTRITION FOLLOW-UP. VENT. ICP/VENTRIC. 3-DAY AVE OF TF MET ABOUT 78% OF MIN KCAL NEEDS AND 81% OF MIN PROTEIN NEEDS. PER RN, TOLERATING TF AT THIS TIME. WAS HAVING HIGH RESIDUAL PAST COUPLE DAYS. LABS: GLU 145, ALB 2.1. NO NEW MEDS. DIET: TF W/ OSMOLITE 1.5 AT 60ML/JV=3106 KCAL, 90 GRAMS PROTEIN, 1097ML FREE WATER. EST NEEDS: 1810-0506 KCAL, 81-97 GRAMS, FLUID NEEDS: 1ML/KCAL D - INADEQUATE ORAL INTAKE RELATED TO INABILITY TO FEED ORALLY EVIDENCED BY VENT AND NEED FOR ENTERAL NUTRITION. I - TF W/ OSMOLITE 1.5 AT 60ML/HR. M/E - GOAL: PT WILL BE ABLE TO TOLERATE ENTERAL NUTRITION AND MEET >75% OF NEEDS IN 2-4 DAYS.
--- NOTE | 2016-07-30 14:15 | NUR ---
Spoke with patient's . She says she will have some insurance paperwork tomorrow that she needs assistance with. Will follow.
--- NOTE | 2016-07-30 16:36 | NUR ---
PT VENTED ON 30% SATS 96-100%, BREATH SOUNDS SLIGHTLY COARSE THROUHGOUT, SXN A SMALL TO MODERATE AMOUNT OF CREAMY SPUTUM, ETCO2 36-40 MOST OF THE DAY, WILL CONTINUE TO WEAN PT TOLERATES
[2016-07-31 04:58] LABS: ANION GAP 13.7 (10.0-19.0); BLOOD UREA NITROGEN 23 mg/dL (6-24); CALCIUM 8.2 mg/dL (8.5-10.5); CHLORIDE 109 mMol/L (96-110); CO2 24 mMol/L (22-32); CREATININE 0.8 mg/dL (0.6-1.3); ESTIMATED GFR (MDRD EQUATION) > 60; POTASSIUM 3.7 mMol/L (3.7-5.1); SODIUM 143 mMol/L (135-145)
--- NOTE | 2016-07-31 05:13 | NUR ---
Patient remained on 30% FiO2 through out the night with saturations in the high 90's. Breath sounds have been slightly coarse to coarse with small to moderate amounts of thick creamy/clear being suctioning out. Tried patient in CPAP. He lasted about 5 minutes before ICP increased and patient went apnic. Switched back to AC.
--- NOTE | 2016-07-31 05:24 | NUR ---
Significant Event: PATIENT OPENS EYES SPONTANEOUSLY, FOLLOWS COMMAND TO RUE ET RLE. LUE FLACCID, GIVES A THUMBS UP WITH DEEP PAINFUL STIMULI. LLE WITHDRAWS TO PAIN. ICP VENTRIC CLOSED T/O SHIFT, ICP'S <20. CPAP TRIAL ATTEMPTED THIS AM. NO BM X3 DAYS, PRN MOM ET SENNA GIVEN, NO RESULTS. FEBRILE, SEE ICU FLOWSHEET FOR DETAILS, PRN TYLENOL GIVEN X2. Follow up:CONTINUE
--- NOTE | 2016-07-31 13:15 | NUR ---
Spoke with patient's . She says they are talking about trach and PEG. Talked with her about LTAC and inpt. rehab and options for both. Told her LTAC would be the level of care he will go to when he leaves here. She says she would prefer [place] as their son lives there as well as other family. She is familiar with [facility] but not [facility]. Told her I can make referrals to both and they both will probably come and assess him. She says if she can know when they are coming she will have their daughter, his brother and others here also. She also had his [place] paperwork and paperwork from an insurance policy they have. Helped her with the forms and put them on chart for to complete and sign. Will make referrals to LTAC. Will follow.
--- NOTE | 2016-07-31 15:49 | NUR ---
D: HEAD BLEED I: V2OO, ALBUTEROL MDI R: BREATH SOUNDS SLIGHTLY COARSE/ DECREASED LOWER LOBES, SXN- SMALL THICK WHITE/CREAM, ET TUBE SECURE, IN CPAP AT 1400- TOLERATING WELL P: CONTINUE CURRENT THERAPY
--- NOTE | 2016-07-31 16:35 | NUR ---
Significant Event: Patient continues on vent without sedation. Follows commands in RUE and RLE. Withdraws x4. Flacid in LUE, can feel painful stimuli. Ventric remains closed, we are to continue to keep ventric closed as ICP permits; ICP<20. SR with HRs 60s-70s. Max temp of 99.5. Patient put into CPAP at 1400, tolerating well. Lungs sounds have been slightly course, dim in bases. TF osmolite 1.5 at 60ml/hr goal, with max residual of 30ml. No BM. Bowels sounds active. NO PRNs given. Follow up: CT in morning. NO BM.
[2016-08-01 03:42] LABS: ANION GAP 12.9 (10.0-19.0); BLOOD UREA NITROGEN 21 mg/dL (6-24); CALCIUM 8.5 mg/dL (8.5-10.5); CHLORIDE 108 mMol/L (96-110); CO2 25 mMol/L (22-32); CREATININE 0.7 mg/dL (0.6-1.3); ESTIMATED GFR (MDRD EQUATION) > 60; POTASSIUM 3.9 mMol/L (3.7-5.1); SODIUM 142 mMol/L (135-145)
[2016-08-01 04:49] LABS: BASOPHIL % 0.4 %; EOSINOPHIL # 0.4 K/uL (0.0-0.5); EOSINOPHIL % 4.2 %; HEMATOCRIT 33.1 % (37.0-53.0); HEMOGLOBIN 10.7 g/dL (12.0-17.0); IMMATURE GRANULOCYTE # 0.1 K/uL (0.0-0.3); LYMPHOCYTE # 2.7 K/uL (0.8-4.0); LYMPHOCYTE % 27.9 %; MCH 29.8 pg (27.0-34.0); MCHC 32.3 gm/dL (32.0-36.5); MCV 92.2 fl (83.0-98.0); MONOCYTE # 0.8 K/uL (0.0-1.0); MONOCYTE % 8.2 %; MPV 9.9 fl (9.4-12.4); NEUTROPHIL # (ANC) 5.7 K/uL (1.4-9.0); NEUTROPHIL % 58.3 %; NRBC % 0 /100WBC (0-0.00); RBC 3.59 M/uL (4.00-6.00); WBC 9.7 K/uL (4.0-11.0)
[2016-08-01 04:59] LABS: PLATELET COUNT 345 K/uL (150-450)
--- NOTE | 2016-08-01 05:08 | NUR ---
Patient was trialed in CPAP from [id number]. He tolerated it well. Tidal volumes around 550, respiratory rate 15-20. Breath sounds are slightly coarse at times but clear with suctioning. Suctioning thick white. Will continue to monitor.
--- NOTE | 2016-08-01 05:38 | NUR ---
Pt drowsy but arrouses to voice. follows commands to the right side. left side is flaccid. right facial droop. CT done this am. Labetolol given 7 times and hydralizine given twice to keep cpp < 90. Tylenol given x1 and fan on patient for t max of 100.1. MOM given for constipation. Osmolyte 1.5 continues at 60 ml/h.
--- NOTE | 2016-08-01 10:49 | NUR ---
A-NUTRITION F/U ICP/VENTRIC; VENTRIC TO REMAIN CLOSED LONG PRESSURES ARE OK ON THE VENT; CPAP MODE GOING WELL THIS AM NO BM SINCE 07/28; MOM BEING GIVEN. HYPOACTIVE BS; (+)FLATUS. WT STABLE MINIMAL RESIDUALS FROM TF; 10-155 ML LABs: NA 142, K+ 3.9, GLU 120, BUN 21, CRYSTAL FINISHER 0.7, ALB 2.1 MEDS: 07/30-LASIX DIET RX: NPO; 60 ML/HR OSMOLITE 1.5 AT 60 ML/HR; PROVIDING 2160 KCALS, 90 GM PROTEIN, AND 1097 ML FREE WATER. EST NUTR. NEEDS: 1814-0280 KCALS, 97 GM PROTEIN D-AT NUTRITION RISK W/DIFF. SWALLOWING R/T VENT SUPPORT AEB NEED FOR EN I-CONTINUE W/CURRENT DIET RX M/E-GOAL: TF TO MEET NUTR. NEEDS 1)F/U TF, RESP STATUS, AND POC IN 4-6 DAYS 2)ASSIST NEEDED
--- NOTE | 2016-08-01 16:46 | NUR ---
Significant Event: Patient continues on the vent without sedation. Follows commands in RUE and RLE. Withdraws x4. Flacid in LUE, can feel painful stimuli. Patient ventric is to remain open to drain at [id number]; drain no more than 15-20cc per hour. Ventric was opened at 1015, 19cc of cloudy CSF out. ICP <20. SR with HRs 60s-70s, CPP 70s-80s. Patient had episode of bradycardia, HRs 40s, SBP 80s, patient rebounded with no further issue. Max temp 99.7. Lung sounds slightly course, dim in the bases; CPAP x1 for 2 hours today. NO BM x5 days, PRN Senna given. Bowel sounds hypoactive to hyperactive, NO results. PRN Tylenol given x1. Follow up: continue
--- NOTE | 2016-08-01 17:55 | NUR ---
D: CEREBELLAR INFARCT I: VENT, MDI R: PT REMAINED ON 30% FIO2 T/O DAY, BS C&D IN UPPER LOBES & DIM IN BASES, SXNED OUT SCANT THICK WHITE SECRETIONS, ATTEMPTED 2 TRIALS OF CPAP/PS 10/14 TODAY, PT TOLERATED WELL FOR 2 HRS EACH, NO OTHER SIGNIFICANT CHANGES T/O DAY P: CONT.
[2016-08-02 05:05] LABS: BLOOD UREA NITROGEN 23 mg/dL (6-24); CHLORIDE 106 mMol/L (96-110); CO2 27 mMol/L (22-32); CREATININE 0.8 mg/dL (0.6-1.3); ESTIMATED GFR (MDRD EQUATION) > 60; SODIUM 144 mMol/L (135-145)
--- NOTE | 2016-08-02 05:06 | NUR ---
No vent changes made this shift, except for 1 attempt around 2100 last night to do CPAP/PS of 10/14. Pt did pull breaths fine, but Vts were never any larger than 260ml. EtCO2 this shift 37-41. BrSs slightly coarse and clear with suctioning of small amounts of thick, white secretions from ETT. Continue attempts at CPAP/PS and per plan of care.
--- NOTE | 2016-08-02 05:44 | NUR ---
PATIENT IS SLEEPY BUT EASILY AWAKE WILL FOLLOW SIMPLE COMMANDS MOVES RT SIDE >THAN LT,WILL WITHDRAW LT SIDE TO PARTIAL NAILBED PRESSURE,PUPILS ARE 3MM ROUNDED EQUAL AND REACT TO LIGHT,ICP/VENTRIC IS OPEN ALL TIME EXCEPT WHEN PATIENT REPOSITIONED OR SUCTIONED,ICP/VENTRIC DRESSING IS C/D/I,VENT MODE A/C CLEAR UPPER LUNGS SOUND,DIMINISHED ON THE BASES,FIO2=30%,D3BYL=132,THICK CREAMY SECRTIONS WHEN SUCTIONED.TOLERATE T.F WELL,NO STOOL YET. FOLLOW UP :CONTINUE TO MONITOR PATIENT'S HEMODYNAMIC AND NEURO STATUS CLOSELY.
[2016-08-02 10:48] LABS: BASOPHIL # 0.1 K/uL (0.0-0.2); BASOPHIL % 0.6 %; EOSINOPHIL # 0.4 K/uL (0.0-0.5); EOSINOPHIL % 4.3 %; HEMATOCRIT 33.2 % (37.0-53.0); HEMOGLOBIN 10.7 g/dL (12.0-17.0); IMMATURE GRANULOCYTE # 0.1 K/uL (0.0-0.3); IMMATURE GRANULOCYTE % 0.9 %; LYMPHOCYTE # 2.7 K/uL (0.8-4.0); LYMPHOCYTE % 31.9 %; MCH 29.5 pg (27.0-34.0); MCHC 32.2 gm/dL (32.0-36.5); MCV 91.5 fl (83.0-98.0); MONOCYTE # 0.7 K/uL (0.0-1.0); MONOCYTE % 8.4 %; MPV 9.5 fl (9.4-12.4); NEUTROPHIL # (ANC) 4.6 K/uL (1.4-9.0); NEUTROPHIL % 53.9 %; NRBC % 0 /100WBC (0-0.00); RBC 3.63 M/uL (4.00-6.00); RDW-CV 11.9 % (11.9-14.6); WBC 8.5 K/uL (4.0-11.0)
[2016-08-02 10:49] LABS: PLATELET COUNT 427 K/uL (150-450)
--- NOTE | 2016-08-02 15:40 | NUR ---
No changes to vent settings t/o shift, continue in A/C mode, 30% Fio2. Lung sounds coarse uppers at times, sxn small-moderate thick white/clear with weak cough from Pt. SBT attempted in AM with no success, low tidal volumes for 10 minutes, returned to A/C mode. Around 1311 SBT completed, CPAP 8/PS 12, tolerated for 30min-1hr, increased work of breathing, returned back to A/C mode. WIll continue to do SBT t/o day.
--- NOTE | 2016-08-02 19:19 | NUR ---
Significant Event:Patient was drowsy in AM, more alert as afternoon went on. Continues on vent without sedation. Follows commands in RUE and RLE. Withdraws LLE. FLaccid to LUE, feels painful stimuli. Patient ventric is to remain open to drain at [id number]; drain no more than 15-20cc per hour. Total of 83cc of clear CSF drained. SR with HRs 60s-80s. Labetolol given x1 and hydralizine x1 to keep CPP<90. Tylenol x1 and fan for max temp 99.9. MOM and Senna given for constipation, no results x6 days. Bowels sounds hypoactive, Osmolite 1.5 continues at 60ml/hr goal. Lung sounds clear/dim, patient did not tolerate CPAP today. Follow up:Continue
[2016-08-03 03:22] LABS: ANION GAP 14.1 (10.0-19.0); BLOOD UREA NITROGEN 23 mg/dL (6-24); CALCIUM 8.8 mg/dL (8.5-10.5); CHLORIDE 108 mMol/L (96-110); CO2 26 mMol/L (22-32); CREATININE 0.7 mg/dL (0.6-1.3); ESTIMATED GFR (MDRD EQUATION) > 60; POTASSIUM 4.1 mMol/L (3.7-5.1); SODIUM 144 mMol/L (135-145)
--- NOTE | 2016-08-03 04:45 | NUR ---
Pt is alert, stroke scale of 9, ventric open, 73 ml out of ventric,. Tolerates tube feed at 60 ml/h. Had XL BM. one extra dose of Hydralazine iv for CPP > 90. Tylenol x2 and fan for Temp > 100.1. Bath done x 2.
--- NOTE | 2016-08-03 05:21 | NUR ---
Pt tolerated CPAP/PS 10/18 last night well. Back in AC to rest through the night. EtCO2 37-42 this shift. Suctioned small amounts of thick, white secretions from ETT when ventric closed. Continue per plan of care.
--- NOTE | 2016-08-03 19:30 | NUR ---
Significant Event:NEURO: Tracks, follows commands in upper right extremity, lower right extremity. Ventric open throught shift, 6 ml CSF out this shift. Clear CSF. CARDIO: SBP 140s. HR 70s. Temp max 100.8. RESP: Apneic during CPAP trial. AC 30% Follow up: Trach/peg this week, possible shunt
[2016-08-04 04:19] LABS: BLOOD UREA NITROGEN 25 mg/dL (6-24); CALCIUM 8.7 mg/dL (8.5-10.5); CHLORIDE 107 mMol/L (96-110); CO2 27 mMol/L (22-32); CREATININE 0.8 mg/dL (0.6-1.3); ESTIMATED GFR (MDRD EQUATION) > 60; SODIUM 143 mMol/L (135-145)
[2016-08-04 04:51] LABS: BASOPHIL # 0.1 K/uL (0.0-0.2); BASOPHIL % 0.5 %; EOSINOPHIL # 0.4 K/uL (0.0-0.5); EOSINOPHIL % 3.1 %; HEMATOCRIT 32.6 % (37.0-53.0); HEMOGLOBIN 10.9 g/dL (12.0-17.0); IMMATURE GRANULOCYTE # 0.1 K/uL (0.0-0.3); IMMATURE GRANULOCYTE % 0.9 %; LYMPHOCYTE # 2.8 K/uL (0.8-4.0); LYMPHOCYTE % 24.7 %; MCH 30.6 pg (27.0-34.0); MCHC 33.4 gm/dL (32.0-36.5); MCV 91.6 fl (83.0-98.0); MONOCYTE # 1.1 K/uL (0.0-1.0); MONOCYTE % 9.3 %; MPV 9.7 fl (9.4-12.4); NEUTROPHIL % 61.5 %; NRBC % 0 /100WBC (0-0.00); RBC 3.56 M/uL (4.00-6.00); RDW-CV 12.1 % (11.9-14.6); WBC 11.3 K/uL (4.0-11.0)
[2016-08-04 04:54] LABS: PLATELET COUNT 525 K/uL (150-450)
--- NOTE | 2016-08-04 05:01 | NUR ---
pt drowsy but has an NIHSS of 10. Pt harder to arrouse but is appropriate, cooperative, following commands when awake. Pt failed CPAP trials d/t apnea. Pt continues on tubefeeding, osmolite 1.5 at goal rate of 60 ml/h. tolerates well. Labetolol prn x1 for high cpp of 94. tylenol x1 for temp of 100.8. opening ventric except for sx and readings. 31 ml out of ventric of clear csf. dilaudid for rubbing of head and hypertension. BM tonight
--- NOTE | 2016-08-04 05:34 | NUR ---
No vent changes this shift. Coninues on 30% FiO2. Suctioned moderate amounts of white, thick secretions from ETT. Continue per plan of care
--- NOTE | 2016-08-04 16:44 | NUR ---
TOLERATED CPAP WELL FOR 2HOURS. WEANING PARAMETER RSBI-94, NIF -26, TV 450, RR 22, VC 500
--- NOTE | 2016-08-04 17:41 | NUR ---
VENTRIC CLOSED TODAY WITH ICP'S 6-12. VSS, NO PRN BP MEDS GIVEN. CPP'S 70-80'S, T-MAX 100.2 AND NO TYLENOL GIVEN WITH RETURN DOWN TO 99'S. CPAP FOR 2HRS THIS AM WITH 5/5 AND SATS MID 90'S AND RR 20'S; A/C MODE WITH PEEP BACK TO 8 FOR REST OF THE DAY. BOWLES WITH ADEQ UOP, PT NEARLY 1L NEGATIVE FOR THE DAY. NO BM, TF TOLERATED WELL WITH MINIMAL RESIDUALS. CT ORDERED FOR AM FOR F/U ON HX OF HYDROCEPHALUS AND NOW DRAIN BEING CLOSED TO RE-EVALUATE PROGRESS. PIV X2 S.L. WITHOUT BLD RETURN BUT FLUSH WELL. NO PAIN MEDS GIVEN, PT UP TO CHAIR FOR AROUND 3 HRS.
--- NOTE | 2016-08-05 03:39 | NUR ---
SIGNIFICANT EVENT: NO NEUROLOGICAL CHANGES THROUGOUT SHIFT. PATIENT NODS APPROPRIATELY AND FOLLOWS COMMANDS IN R EXTREMITIES. L EXTREMTIES WITHDRAW ONLY. BP MAINTINED WELL WITHIN CPP GOALS THROUGHOUT STAY. FOLLOW UP:
[2016-08-05 04:50] LABS: ANION GAP 12.7 (10.0-19.0); BLOOD UREA NITROGEN 23 mg/dL (6-24); CALCIUM 8.8 mg/dL (8.5-10.5); CHLORIDE 107 mMol/L (96-110); CO2 28 mMol/L (22-32); CREATININE 0.8 mg/dL (0.6-1.3); ESTIMATED GFR (MDRD EQUATION) > 60; POTASSIUM 3.7 mMol/L (3.7-5.1); SODIUM 144 mMol/L (135-145)
--- NOTE | 2016-08-05 05:25 | NUR ---
At 2038 patient was trialed in CPAP/PS until 2041. During this time, his ICP increased to 24 and he was only getting tidal volumes of 250-300. Due to ICP increase, he was switched back to a rate. Breath sounds have been slightly coarse and have cleared through out the shift. Suctioning small amounts of thick white. Will continue to monitor.
--- NOTE | 2016-08-05 11:59 | NUR ---
A-NUTRITION F/U VENTRIC HAS BEEN CLOSED SINCE 08/04. POSSIBLE REMOVAL AND SHUT PLACEMENT. PLAN FOR TRACH/PEG SOON (+)BS; (+)FLATUS; (+)BM. MINIMAL RESIDUALS FROM TF; 0-5 ML LABS: GLU 128 DIET RX: NPO; 60 ML/HR OSMOLITE 1.5. THIS IS GOAL RATE D-AT NUTRITION RISK W/DIFF. SWALLOWING R/T VENT SUPPORT AEB NEED FOR EN. I-CONTINUE W/CURRENT DIET RX M/E-GOAL: CONTINUED TOLERANCE OF ENTERAL NUTRITION 1)F/U TF AND POC IN 3-5 DAYS 2)ASSIST NEEDED
--- NOTE | 2016-08-05 14:17 | NUR ---
Called and updated Annmarie at [facility] that patient is still on the vent. Waiting to hear back if she is still planning on coming to [place] 08/06.
--- NOTE | 2016-08-05 17:13 | NUR ---
D: HEAD BLEED I: VENT, MDI R: PT REMAINED ON 30% FIO2 T/O DAY, BS C&D TO SL COARSE IN UPPER LOBES & DIM IN BASES, SXNED OUT SCANT THICK WHITE SECRETIONS, ATTEMPTED CPAP 3 TIMES TODAY BUT PT FAILED W/ VT'S DROPPING TO 150-200 & HAVING EPISODES OF APNEA P: CONT.
--- NOTE | 2016-08-06 05:02 | NUR ---
SIGNIFICANT EVENT: NO NEUROLOGICAL CHANGES THROUGHOUT SHIFT. PT REMAINS ABLE TO FOLLOW COMMANDS IN R EXTREMITIES, WITHDRAW TO LEFT. ISSUES WITH SUCTIONING IN ET TUBE, UNABLE TO PASS SUCTION CATHETER ALL THE WAY DOWN. NO OTHER CHANGES. FOLLOW UP:
--- NOTE | 2016-08-06 05:10 | NUR ---
No vent changes made this shift. Attempted CPAP/PS at beginning of shift, but patient kept going apneic. EtCO2 36-42 this shift. BrSs coarse t/o. PIPs 2nd half of shift have been low 30s. Suction catheter not being able to advance all the way. CXR today?
[2016-08-06 05:21] LABS: ANION GAP 12.7 (10.0-19.0); BLOOD UREA NITROGEN 22 mg/dL (6-24); CALCIUM 8.5 mg/dL (8.5-10.5); CHLORIDE 108 mMol/L (96-110); CO2 28 mMol/L (22-32); CREATININE 0.8 mg/dL (0.6-1.3); ESTIMATED GFR (MDRD EQUATION) > 60; POTASSIUM 3.7 mMol/L (3.7-5.1); SODIUM 145 mMol/L (135-145)
--- NOTE | 2016-08-06 11:15 | NUR ---
Lindsey from [facility] and Caitlin from [facility] are both here to assess patient for LTAC. They both will meet separately with patient, his , his brother and his 2 daughters. Will await their decision on which LTAC they choose. Will follow.
--- NOTE | 2016-08-06 17:28 | NUR ---
Significant Event: NO NEURO CHANGES THOUGHTOUT SHIFT, PATIENT OPENS EYES TO VOICE, FOLLOWS COMMANDS IN RUE AND RLE, WITHDRAWS X4. SR WITH HRS 70S, HYPERTENSIVE 10MG HYDRALAZIZE IVP GIVEN. LUNG SOUNDS CLEAR AND DIM. BOWEL SOUNDS ACTIVE, NO BM. MADONNA AND SELECT CAME TO EVALUATE. TRACH AND PEG TOMORROW AROUND 1300. ARTLINE DISCONTINUED. Follow up: TRACH AND PEG
--- NOTE | 2016-08-06 17:54 | NUR ---
D: HEAD BLEED I: VENT, MDI R: PT REMAINED ON 30% FIO2 T/O DAY, BS CLEAR IN UPPER LOBES & DIM IN BASES, SXNED OUT SCANT TO SMALL THICK WHITE, ATTEMPTED CPAP TRIALS 3 TIMES TODAY & PT FAILED DUE LOW VT'S OR APNEA, NO OTHER SIGNIFICANT CHANGES T/O DAY P: TRACH & PEG PLANNED FOR TOMORROW8
--- NOTE | 2016-08-07 04:06 | NUR ---
Pt strong on Right side, flaccid on the left. Right pupil slightly larger than left. right facial droop. Follows commands. Pt remains vented on 30%. Tubefeeding on hold at midnoc for trach and peg today. Ventric remained closed. ICP's 5-13. NIHSS scale is 9.
[2016-08-07 05:58] LABS: ANION GAP 13.1 (10.0-19.0); BLOOD UREA NITROGEN 25 mg/dL (6-24); CHLORIDE 108 mMol/L (96-110); CO2 27 mMol/L (22-32); CREATININE 0.8 mg/dL (0.6-1.3); ESTIMATED GFR (MDRD EQUATION) > 60; SODIUM 144 mMol/L (135-145)
[2016-08-07 06:00] LABS: POTASSIUM 4.1 mMol/L (3.7-5.1)
--- NOTE | 2016-08-07 08:12 | NUR ---
A - ON VENT. GLU 99, BUN/SVP RESEARCH AND STRATEGIC ANALYSIS 25/0.8. PT W/ 1+ EDEMA T/O. TF ON HOLD FOR TRACH/PEG. OSMOLITE 1.5 HAS BEEN AT GOAL RATE OF 60 ML/HR. D - DIFFICULTY SWALLOWING R/T RELIANCE ON VENT AEB EN. I - GOAL: RESUME TF AFTER PEG AND ADVANCE TO GOAL RATE. M/E - WILL CONT TO MONITOR EN. F/U IN 3-5 DAYS.
--- NOTE | 2016-08-07 14:35 | NUR ---
Spoke to patient's earlier today and she says after discussion with extended family they have decided on [facility] LT[facility]. She says she liked both, but the idea of one move and being able to get LTAC that he needs now and Inpt. Rehab later was important to her. Called Annmarie at [facility] as Lindsey is out today and updated her. Left [facility] for Caitlin at [facility]. Anticipate transfer to LTAC early next week. Will follow.
--- NOTE | 2016-08-07 17:22 | NUR ---
Significant Event: Drowsy at times, follows commands on R) side. Tracks, pupils brisk. Neuro checks q4h. Stroke scale an 8. L) side withdraws to pain, no spontaneous movement. ICP/Ventric dc'd by Dr. Uribe today. Trach inserted by Dr. Winslow today FIO2 30%. PEG inserted by Dr. Winslow clamped x 8 hours and then to start tube feeds slowly. Kinney catheter intact. Sutures to posterior head removed by Dr. Uribe and dressing changed. IV to L) hand saline locked. Repositioned throughout shift. Oral cares q4h. Follow up: monitor.
--- NOTE | 2016-08-07 17:25 | NUR ---
No changes to vent settings t/o shift. SBT completed, CPAP 8/PS 12, tolerated for approx 30 minutes then returned to A/C mode. Trach/Pegged today, sxn moderate-large thick bloody, lung sounds slightly coarse t/o but clears with sxn. On 30% Fio2, will continue to monitor
--- NOTE | 2016-08-08 04:38 | NUR ---
Significant Event: PATIENT AWAKENS TO VERBAL STIMULI, SPONTANEOUS AND TO COMMAND MOVEMENT TO RIGHT SIDE EXTREMITIES. LEFT SIDE EXTREMITIES WITHDRAW TO NOXIOUS STIMULI. THUMBS UP/DOWN TO QUESTIONS. GAG AND COUGH INTACT. TEMP MAX 102.6, TREATED WITH PRN TYLENOL. 8.0 SHILEY TRACH INTACT, CONTINEUS ON VENT A/C 13/750/8/30%. ETCO2 28-33. PEG TUBE, TF RESTARTED THIS SHIFT, ADVANCING TO GOAL 60ML/HR, CURRENTLY AT 40ML/HR. BOWLES WITH ADEQUATE UOP. PIV X1, SL. Follow up: [facility] NEXT WEEK.
[2016-08-08 05:40] LABS: BASOPHIL # 0.1 K/uL (0.0-0.2); BASOPHIL % 0.6 %; EOSINOPHIL # 0.3 K/uL (0.0-0.5); EOSINOPHIL % 2.3 %; HEMATOCRIT 34.8 % (37.0-53.0); IMMATURE GRANULOCYTE # 0.1 K/uL (0.0-0.3); IMMATURE GRANULOCYTE % 0.5 %; LYMPHOCYTE # 1.5 K/uL (0.8-4.0); LYMPHOCYTE % 13.8 %; MCH 29.5 pg (27.0-34.0); MCHC 31.6 gm/dL (32.0-36.5); MCV 93.3 fl (83.0-98.0); MONOCYTE # 0.9 K/uL (0.0-1.0); MONOCYTE % 8.1 %; MPV 9.3 fl (9.4-12.4); NEUTROPHIL # (ANC) 8.3 K/uL (1.4-9.0); NEUTROPHIL % 74.7 %; NRBC % 0 /100WBC (0-0.00); PLATELET COUNT 470 K/uL (150-450); RBC 3.73 M/uL (4.00-6.00); RDW-CV 12.4 % (11.9-14.6); WBC 11.1 K/uL (4.0-11.0)
[2016-08-08 05:53] LABS: ANION GAP 13.5 (10.0-19.0); BLOOD UREA NITROGEN 25 mg/dL (6-24); CALCIUM 8.5 mg/dL (8.5-10.5); CHLORIDE 110 mMol/L (96-110); CO2 25 mMol/L (22-32); ESTIMATED GFR (MDRD EQUATION) > 60; POTASSIUM 3.5 mMol/L (3.7-5.1); SODIUM 145 mMol/L (135-145)
--- NOTE | 2016-08-08 14:02 | NUR ---
Significant Event: Nods appropriately, tracks. PERRLA. Follows commands on R) side, withdraws in L) side. Stroke scale an 8. Generalized edema. Trach, cannula, ties and dressing changed, bloody drainage. CPAP mode and intermittent trach mask today. Oral cares q4h. Trach leaks Dr. Eduardo and Dr. Winslow aware. PEG with osmolite 1.5 at 60 ml/hr, goal. Kinney catheter intact. Dressing to head C/D/I. Up to chair today. L) hand IV saline locked. Repositioned throughout shift. Pericares provided. PT/OT onboard. Follow up: [facility] accepted when ready, monitor.
--- NOTE | 2016-08-08 17:43 | NUR ---
Spoke with Lindsey at [facility] this afternoon and udpate faxed to [facility]. Spoke with patient's and updated her. Dr. Uribe completed 2 of the 3 forms needed for his FMLA and their insurance. The 2 completed forms faxed and copies given to his . Talked to Dr. Uribe earlier today and he plans repeat scan on Thursday and if OK probably ready for LTAC Thursday. Anticipate possible tranfer to [facility] early next week. Will follow.
--- NOTE | 2016-08-09 04:52 | NUR ---
Significant Event: PATIENT ALERT, FOLLOWS COMMANDS TO RIGHT SIDE. NO SPONTANEOUS MOVEMENT OF LEFT SIDE EXTREMITIES. WITHDRAW X4. TEMP MAX 99.9. 8.0 SHILEY. CPAP THROUGHOUT SHIFT. PATIENT REFUSED TRACH MASK THIS EVENING. PEG WITH OSMOLITE TF AT GOAL 60ML/HR TOLERATING WELL. NO BM THIS SHIFT. PRN SENNA AND MOM GIVEN THIS SHIFT. BOWLES WITH ADEQUATE UOP. PIV X1 SALINE LOCKED. PT REFUSED BATH. Follow up:[facility] NEXT WEEK
--- NOTE | 2016-08-09 04:55 | NUR ---
Patient was in CPAP/PS through our shift. Peep 8, PS 10. He stated he would like to try the trach mask again during first check but by the time the second check came around he was sleeping and did not wish to at that time. Let patient sleep through out the shift. Breath sounds are slightly coarse at times. Suctioning small to moderate creamy, blood tinged sputum. Suctioning clears coarseness. Will continue to try trach mask with patient and will continue to monitor.
[2016-08-09 05:51] LABS: BASOPHIL # 0.1 K/uL (0.0-0.2); BASOPHIL % 0.5 %; EOSINOPHIL # 0.4 K/uL (0.0-0.5); EOSINOPHIL % 3.5 %; HEMATOCRIT 34.4 % (37.0-53.0); HEMOGLOBIN 10.9 g/dL (12.0-17.0); IMMATURE GRANULOCYTE # 0.1 K/uL (0.0-0.3); IMMATURE GRANULOCYTE % 0.5 %; LYMPHOCYTE # 1.9 K/uL (0.8-4.0); LYMPHOCYTE % 18.8 %; MCH 29.4 pg (27.0-34.0); MCHC 31.7 gm/dL (32.0-36.5); MCV 92.7 fl (83.0-98.0); MONOCYTE # 0.7 K/uL (0.0-1.0); MONOCYTE % 7.2 %; NEUTROPHIL % 69.5 %; NRBC % 0 /100WBC (0-0.00); PLATELET COUNT 451 K/uL (150-450); RBC 3.71 M/uL (4.00-6.00); RDW-CV 12.2 % (11.9-14.6); WBC 10.1 K/uL (4.0-11.0)
[2016-08-09 06:05] LABS: ANION GAP 12.1 (10.0-19.0); BLOOD UREA NITROGEN 18 mg/dL (6-24); CALCIUM 8.7 mg/dL (8.5-10.5); CHLORIDE 109 mMol/L (96-110); CO2 28 mMol/L (22-32); CREATININE 0.7 mg/dL (0.6-1.3); ESTIMATED GFR (MDRD EQUATION) > 60; POTASSIUM 4.1 mMol/L (3.7-5.1); SODIUM 145 mMol/L (135-145)
--- NOTE | 2016-08-09 17:37 | NUR ---
Significant Event:Alert, left side flaccid, moves all extremeties spontaneously and to command. REports no pain. Able to make needs known with nodding and hand movements. SBP's in 110's. 1+ generalized edema. CPAP and TM today. Tolerating tube feeding without residuals. No BM. REports no pain. Abundant clear drainage, appears to be coming from sutured area on top of the head. Dr. Coleman placed 2 additional sutures and covered with an island barrier. Follow up: CT of brain without contrast tomorrow to look at ventricle and then possible PLYWOOD SCARFER TENDER shunt, then dismissal to [facility] on Thursday if no shunt, if shunt placed.
--- NOTE | 2016-08-10 02:52 | NUR ---
Significant Event: PATIENT ALERT. FOLLOWS COMMANDS TO RIGHT SIDE. NO SPONTANEOUS MOVEMENT ON LEFT SIDE EXTREMITIES. WITHDRAWS X4. HR'S 70'S-80'S. SBP 100'S-140'S. TMAX 100.3. CPAP AT NIGHT. O2 SATURATIONS >93%. HYPOACTIVE BS. NO BM. MILK OF MG GIVEN. OSMOLITE AT 60ML/HR,GOAL. NO RESIDUALS. BOWLES TO DD WITH LOW UOP. PIV X1 SL. Follow up: LOW UOP/ CONTINUE WITH CURRENT PLAN OF CARE.
[2016-08-10 05:49] LABS: ANION GAP 9.2 (10.0-19.0); BLOOD UREA NITROGEN 19 mg/dL (6-24); CHLORIDE 107 mMol/L (96-110); CO2 32 mMol/L (22-32); CREATININE 0.8 mg/dL (0.6-1.3); ESTIMATED GFR (MDRD EQUATION) > 60; POTASSIUM 4.2 mMol/L (3.7-5.1); SODIUM 144 mMol/L (135-145)
--- NOTE | 2016-08-10 15:51 | NUR ---
PT VENTED ON 30% CPAP/PS 8/10 BACK AND FORTH THROUGHOUT THE DAY, PT WAS ALSO ON TRACH MASK ABOUT 7 HOURS TODAY, BREATH SOUNDS ARE COARSE TO SLIGHLTY COARSE THROUGHOUT, SXN A LARGE AMOUNT OF CREAMY SPUTUM, ETCO2 28-32 MOST OF THE DAY, WILL CONTINUE TO WEAN AND TO MONITOR PT UNTIL FURTHER NOTICE
--- NOTE | 2016-08-10 19:18 | NUR ---
Significant Event:Alert, oriented to self, nods appropriately, gives thumbs up and able to make needs known. L) side flaccid and withdraws to pain. R) side follows commands and purposeful. HR 70's to 90's. SBP 120's to 160's. Edema all over 2+ generalized in body and none in hands and feet. Max temp 99.3. Trach suctioned for thick creamy sputum multiple times, air leak can be auscultated. Trach cares completed, inner cannula, #8 Shiley changed. Stoma is slightly pink. Lungs coarse. Osmolite 1.5 infusing at 60 ml/h (goal). No residuals. MOM given for NO BM since 08/03, incontinent of XL BM late this afternoon. updated at the bedside, concerning possiblity of needing a HOME COMPANION shunt in the future. Dr Coleman explained, but placeing stitches in top of head where clear drainage is coming from for now. Steril procedure at the bedside with 1% Lidocaine SBQ for anesthesia. Dressings place over both sutured areas, 1 on top and 1 on posterior occiput/neck area. Placed on his side to determine where drainage is coming from. Neck site is completely dry today. Drainage is coming from top of head. Ventricle appears larger in last brain CT. Follow up:HOME COMPANION shunt? Lauren next week?
--- NOTE | 2016-08-11 03:12 | NUR ---
Significant Event: NO SIGNIFICANT NEURO CHANGES DURING SHIFT. HR'S 70'S-80'S. SBP 120'S-150'S. TMAX 100.3. CPAP AT NIGHT. O2 SATS >95%. ACTIVE BS. 3 XLARGE STOOLS. BOWLES TO DD WITH LOW UOP,350ML. TF AT GOAL WITH NO RESIDUALS. Follow up: POSSIBLE V/P SHUNT.
[2016-08-11 06:35] LABS: BASOPHIL # 0.1 K/uL (0.0-0.2); BASOPHIL % 0.5 %; EOSINOPHIL # 0.3 K/uL (0.0-0.5); EOSINOPHIL % 3.1 %; HEMATOCRIT 30.6 % (37.0-53.0); HEMOGLOBIN 9.5 g/dL (12.0-17.0); IMMATURE GRANULOCYTE # 0.1 K/uL (0.0-0.3); IMMATURE GRANULOCYTE % 0.6 %; LYMPHOCYTE # 1.8 K/uL (0.8-4.0); LYMPHOCYTE % 18.7 %; MCH 29.1 pg (27.0-34.0); MCV 93.6 fl (83.0-98.0); MONOCYTE # 0.9 K/uL (0.0-1.0); MONOCYTE % 9.1 %; MPV 9.4 fl (9.4-12.4); NEUTROPHIL # (ANC) 6.4 K/uL (1.4-9.0); NRBC % 0 /100WBC (0-0.00); PLATELET COUNT 384 K/uL (150-450); RBC 3.27 M/uL (4.00-6.00); WBC 9.5 K/uL (4.0-11.0)
[2016-08-11 06:50] LABS: ANION GAP 7.7 (10.0-19.0); BLOOD UREA NITROGEN 18 mg/dL (6-24); CALCIUM 8.7 mg/dL (8.5-10.5); CHLORIDE 107 mMol/L (96-110); CO2 34 mMol/L (22-32); CREATININE 0.7 mg/dL (0.6-1.3); ESTIMATED GFR (MDRD EQUATION) > 60; POTASSIUM 3.7 mMol/L (3.7-5.1); SODIUM 145 mMol/L (135-145)
--- NOTE | 2016-08-11 13:25 | NUR ---
Significant Event: Patient is alert/ following commands with right sided extremities. Leaking CSF out of top of head, dressing covering currently and has chux on head for this reason. PERRLA. L) sided extremities flaccid, but do withdraw. Afebrile. VSS. Goes back and forth from CPAP mode on ventilator 07/14 to TM 40%. Needs ET suctioned approximately every [address] Uribe has yet to see patient, started on water flushes this shift. Did the sit to stand to get him up to chair with occupational therapy. Kinney draining yellow clear urine. Follow up:
--- NOTE | 2016-08-11 17:17 | NUR ---
Significant Event: ASSUMED CARES AT 1400 FROM ZORAN PAZ. PATIENTS CONDITION UNCHAGNED AND STABLE. PATIENT TO CHAIR VIA FULL LIFT. SUCTIONED PER RESPIRATORY. VSS. AT BEDSIDE. PLEASANT AND COOEPRATIVE WITH CARES Follow up:
--- NOTE | 2016-08-11 17:18 | NUR ---
Several calls today latoshaht Annmarie and Lindsey at [facility]. Updated them on patient condition and probably not ready for transfer to LTAC until . They will work on precert from his insurnace. Update faxed to [facility]. Did speak with his this afternoon. Will follow.
--- NOTE | 2016-08-11 17:26 | NUR ---
PT VENTED ON CPAP 8/10 THROUGHOUT THE DAY AND WAS ALSO ON TRACH MASK ABOUT 7 HOURS TODAY, BREATH SOUNDS SLIGHTLY COARSE THROUGHOUT, SXN A LARGE AMOUNT OF CREAMY SPUTUM, ETCO2 38-42 MOST OF THE DAY, WILL CONTINUE WITH TRACH MASK ON AND OFF PT TOLERATES
--- NOTE | 2016-08-12 06:23 | NUR ---
patient is sleepy but easily awake will follow simple commands with rt hand,node his head occasionally,4 by 4 gauze was applied to old icp/ventric entery site for small amount of csf sandor as ordered by dr martinez and H.O.B to keep elevated,clear upper lungs sound diminished on the bases,stronge productive cough,creamy secrtions tolerate alternating between trach mask and c-pap.tolerate t.f osmolite at 60 ml/h,no bowel movement follow up:continue to monitor patient's hemodynamic and neuro status closely.
[2016-08-12 06:41] LABS: BASOPHIL # 0.1 K/uL (0.0-0.2); BASOPHIL % 0.6 %; EOSINOPHIL # 0.3 K/uL (0.0-0.5); EOSINOPHIL % 2.9 %; HEMATOCRIT 33.4 % (37.0-53.0); HEMOGLOBIN 10.5 g/dL (12.0-17.0); IMMATURE GRANULOCYTE % 0.4 %; LYMPHOCYTE # 2.2 K/uL (0.8-4.0); LYMPHOCYTE % 24.4 %; MCHC 31.4 gm/dL (32.0-36.5); MCV 92.3 fl (83.0-98.0); MONOCYTE # 0.8 K/uL (0.0-1.0); MPV 9.5 fl (9.4-12.4); NEUTROPHIL # (ANC) 5.6 K/uL (1.4-9.0); NEUTROPHIL % 62.7 %; NRBC % 0 /100WBC (0-0.00); PLATELET COUNT 372 K/uL (150-450); RBC 3.62 M/uL (4.00-6.00)
[2016-08-12 07:07] LABS: ANION GAP 12.5 (10.0-19.0); BLOOD UREA NITROGEN 18 mg/dL (6-24); CALCIUM 8.7 mg/dL (8.5-10.5); CHLORIDE 103 mMol/L (96-110); CO2 32 mMol/L (22-32); CREATININE 0.7 mg/dL (0.6-1.3); ESTIMATED GFR (MDRD EQUATION) > 60; SODIUM 143 mMol/L (135-145)
[2016-08-12 07:10] LABS: POTASSIUM 4.5 mMol/L (3.7-5.1)
--- NOTE | 2016-08-12 08:16 | NUR ---
A - NUTRITION F/U. PT ALTERNATES D/T TRACH MASK AND CPAP. GLU 121, BUN/PRODUCT TECHNICIAN 18/0.7. TOLERATING OSMOLITE 1.5 AT 60 ML/HR PER PEG. PT W/ 1+ EDEMA T/O. D - DIFFICULTY SWALLOWING R/T NEED FOR VENT PER TRACH AEB EN PER PEG. I - GOAL: CONT TO MEET NEEDS VIA EN. M/E - WILL CONT TO MONITOR AND F/U IN 3-5 DAYS.
--- NOTE | 2016-08-12 13:45 | NUR ---
Significant Event:PT IS ALERT. RIGHT ARM MOVES SPONTANOUS AND TO COMMANDS. COMMUNICATES WITH THIS HAND BY DOING THUMBS UP. R) FOOT MOVES SPONTANOUS AND TO COMMANDS. LEFT ARM AND LEG WITHDRAW TO PAIN. PERRLA. FULL LIFT. SBP 90-130'S. LUNG SOUNDS SLIGHLTY COURSE. GOOD STRONG COUGH. CREAM COLORED SPUTUM. BOWLES DRAINING. TF RUNNING. NO RESIDUALS. NPO AT MN. DRSG TO HEAD HAS DRAINAGE NOTED. IV L) HAND SL'D. XL BM TODAY. Follow up:SURGERY TOMORROW FOR ONLINE EDUCATION MANAGER SHUNT?
--- NOTE | 2016-08-12 13:51 | NUR ---
Spoke with Lindsey at [facility] this a.m. and updated her. Annmarie from [facility] will be here tomorrow to see patient's and will stop by to see him. Talked to patient and and updated them. Patient may have HEMODIALYSIS TECHNICIAN shunt tomorrow per patient's nurse. Will follow.
--- NOTE | 2016-08-12 16:59 | NUR ---
Pt on trach mask t/o shift, 40% Fio2 sxn frequently moderate thick white/cream with strong cough from Pt.
--- NOTE | 2016-08-13 04:43 | NUR ---
Pt tolerated trach mask t/o day yesterday at 40%. Placed back on ventilator CPAP/PS 10/16 last night around 2039. BrSs clear and diminished mostly in bases. Suctioned small-moderate amounts of cream, thick secretions from trach. EtCO2 mid 40s. Continue per plan of care, CATEGORY ANALYST shunt today.
[2016-08-13 05:04] LABS: BASOPHIL # 0.1 K/uL (0.0-0.2); BASOPHIL % 0.5 %; EOSINOPHIL # 0.3 K/uL (0.0-0.5); EOSINOPHIL % 2.7 %; HEMATOCRIT 33.1 % (37.0-53.0); HEMOGLOBIN 10.6 g/dL (12.0-17.0); IMMATURE GRANULOCYTE % 0.2 %; LYMPHOCYTE % 20.1 %; MCH 29.6 pg (27.0-34.0); MCV 92.5 fl (83.0-98.0); MONOCYTE # 0.9 K/uL (0.0-1.0); MONOCYTE % 9.3 %; MPV 9.6 fl (9.4-12.4); NEUTROPHIL # (ANC) 6.6 K/uL (1.4-9.0); NEUTROPHIL % 67.2 %; NRBC % 0 /100WBC (0-0.00); PLATELET COUNT 316 K/uL (150-450); RBC 3.58 M/uL (4.00-6.00); RDW-CV 11.9 % (11.9-14.6); WBC 9.8 K/uL (4.0-11.0)
[2016-08-13 05:16] LABS: PROTIME 11.6 SECONDS (9.8-11.4); PTT 27 SECONDS (25-32)
[2016-08-13 05:23] LABS: ALBUMIN 2.4 gm/dL (3.5-5.0); ALK PHOS 106 IU/L (33-138); ALT 128 IU/L (12-78); ANION GAP 8.2 (10.0-19.0); AST 48 IU/L (10-40); BLOOD UREA NITROGEN 18 mg/dL (6-24); CALCIUM 8.8 mg/dL (8.5-10.5); CHLORIDE 104 mMol/L (96-110); CO2 34 mMol/L (22-32); CREATININE 0.7 mg/dL (0.6-1.3); ESTIMATED GFR (MDRD EQUATION) > 60; POTASSIUM 4.2 mMol/L (3.7-5.1); SODIUM 142 mMol/L (135-145); TOTAL BILIRUBIN 0.4 mg/dL (0.0-1.5); TOTAL PROTEIN 6.8 g/dL (6.0-8.4)
--- NOTE | 2016-08-13 06:47 | NUR ---
Significant Event: PATIENT A/O, COOPERATIVE, DENIES PAIN OR DISCOMFORT. DOWN TO CT SCAN FROM APPROX [id number]. OLD ICP VENTRIC SITE CONTINUES TO LEAK CLEAR FLUID, DRESSING REMAINS INTACT. NPO AFTER MIDNIGHT. TRACH TO VENT 30% FiO2. Follow up: WEAVING PROFESSOR SHUNT PROCIDURE TODAY
--- NOTE | 2016-08-13 12:45 | NUR ---
Annmarie from [facility] here today and talked with patient and . Updated information given to her. Patient to have DEPARTMENT EDITOR shunt today. She is uncertain if they can accept patient on Thursday or if it would be Thursday. She is going to check with their team and they will need to get preauth from his insurance. She will let me know what they decide. Will follow.
--- NOTE | 2016-08-13 13:57 | NUR ---
Significant Event: Patient alert, following commands with right sided extremities. Up to chair with sit to stand this shift, and returned with the sit to stand lift. Afebrile. NSR. VSS. Plan for CATHETER BUILDER shunt with Dr. Uribe this shift. NPO since midnight. PEG tube clamped. Kinney to DD. Follow up:
--- NOTE | 2016-08-13 17:47 | NUR ---
D: HEAD BLEED I: VENT, TRACH MASK, MDI, ALB/UD R: PUT PT ON TRACH MASK @ 0744, PT STAYED ON TRACH MASK T/O DAY, HE WENT TO SURGERY THIS AFTERNOON FOR A ENTRY SPECIALISTS SHUNT PLACEMENT, REMAINED ON 40% FIO2 T/O DAY, BS SL COARSE T/O, SXNED OUT SMALL TO MOD THICK CREAMY SECRETIONS P: PT WILL RETURN TO ICU FROM SURGERY ON FULL VENT SUPPORT
--- NOTE | 2016-08-14 04:39 | NUR ---
Patient came back from surgery around 1900. He was in AC until approxiamtely 2100 when he was then switched back over to CPAP 10/16. He was weaned from 80% back down to 30%. On 30% his saturations have been in the mid to daniella 90's. Breath sounds are slightly coarse at times but usually clear with coughing/suctioning. Suctioning small, thick, white secretions. Will continue to monitor patiient.
--- NOTE | 2016-08-14 04:42 | NUR ---
Significant Event: BACK FROM OR AT 1833. PERSONAL CARE AIDE SHUNT IN PLACE. DRESSING INTACT, SMALL AMOUNT OF DRAINAGE TO POSTERIOR HEAD. MORE AWAKE OVERNIGHT. FOLLOWS COMMANDS ON R). W/D ON L). SR. SBP 130-160'S. AFEBRILE. CPAP VIA TRACH. 40% FIO2, 8/10. LUNG SOUNDS SLIGHTLY COARSE AT TIMES. WHITE SPUTUM SUCTIONED AT TIMES. TF RESTARTED AT 60ML/HR, MAX RESIDUAL OF 15ML. NO BM OVERNIGHT. 685ML UOP. BATH COMPLETE. TURNED Q2HR. PATIENT GAVE THUMBS UP TO HAVING PAIN. GAVE OXYCODONE 2.5MG X1. Follow up: CONTINUE TO MONITOR.
[2016-08-14 05:36] LABS: ALBUMIN 2.3 gm/dL (3.5-5.0); ALK PHOS 100 IU/L (33-138); ALT 97 IU/L (12-78); ANION GAP 12.2 (10.0-19.0); AST 29 IU/L (10-40); BLOOD UREA NITROGEN 16 mg/dL (6-24); CALCIUM 8.2 mg/dL (8.5-10.5); CHLORIDE 101 mMol/L (96-110); CO2 31 mMol/L (22-32); CREATININE 0.6 mg/dL (0.6-1.3); ESTIMATED GFR (MDRD EQUATION) > 60; POTASSIUM 4.2 mMol/L (3.7-5.1); SODIUM 140 mMol/L (135-145); TOTAL PROTEIN 6.7 g/dL (6.0-8.4)
[2016-08-14 05:40] LABS: TOTAL BILIRUBIN 0.3 mg/dL (0.0-1.5)
--- NOTE | 2016-08-14 08:06 | NUR ---
A - NUTRITION F/U. NETWORKER SHUNT PLACED YESTERDAY. TRACH/PEG IN PLACE. GLU 141, BUN/WINE STEWARD/STEWARDESS 16/0.6, ALB 2.3. 1+ EDEMA T/O. OSMOLITE RESUMED AT 60 ML/HR. D - AT RISK W/ DIFFICULTY SWALLOWING R/T TRACH AEB PEG TUBE FEEDINGS. I - GOAL: CONT TO MEET NEEDS VIA EN. M/E - NO CHANGES AT THIS TIME. F/U IN 3-5 DAYS.
--- NOTE | 2016-08-14 17:32 | NUR ---
Significant Event: PATIENT ALERT, FOLLOWS COMMANDS IN RIGHT, W/D IN LEFT, NODS APPROPRIATELY. SADDLE STITCH OPERATOR SHUNT PLACED YESTERDAY, DRESSINGS INTACT. SR WITH HRS 60S-70S. AFIBRILE. SBP 170S, PRN HYDRALAZINE 20MG IVP GIVEN X1. CPAP TO TRACH MASK, TOLERATING WELL. LUNG SOUNDS SLIGHTLY COURSE TO CLEAR/DIM. STRONG COUGH, WHITE SPUTUM. OSMOLITE 1.5 AT 60ML/HR WHICH IS GOAL. NO RESIDUALS. NO BM. D/C BOWLES, BLADDER SCAN AT 2215, IF GREATER THAN 300ML STRAIGHT CATH, IF GREATER THAN 300ML X2 THEN REPLACE BOWLES. PATIENT REFUSED TO GET UP TO CHAIR WITH PT/OT X2 TODAY. OFF FLOOR TO CT 1715 TO 1735. Follow up: [facility] TOMORROW
--- NOTE | 2016-08-14 17:46 | NUR ---
D: HEAD BLEED I: VENT, MDI, TRACH MASK, ALB/UD R: TOOK PT OFF VENT @ 13:17 TO A 40% TRACH MASK, TOLERATING WELL, BS SL COARSE AT TIMES, SXNED OUT SMALL THICK WHITE SECRETIONS, NO OTHER SIGNIFICANT CHANGES T/O DAY P: PT IS SUPPOSE TO GO TO [facility] TOMORROW VIA TRACH MASK
--- NOTE | 2016-08-14 18:43 | NUR ---
08/14/16: DOMINGUEZ QUINN,ZORAN AGREES WITH ROSE MAYNARD'S RN CHARTING FROM [id number].
--- NOTE | 2016-08-15 04:59 | NUR ---
Significant Event: PATIENT AWAKENS EASILY TO VERBAL STIMULI. SPONTANEOUS AND TO COMMAND MOVEMENT OF RIGHT SIDE EXTREMITIES. WITHDRAW TO LEFT SIDE EXTREMITIES. GAG AND COUGH INTACT. TEMP MAX 99.9. SBP GOAL <150. CONTINUES ON TRACH MASK THROUGHOUT DAY AT 40% FIO2, CPAP AT NIGHT 30% FIO2. 8.0 SHILEY TRACH. PEG TUBE WITH OSMOLITE 1.5 AT GOAL 50ML/HR WITH Q6HR 200ML WATER FLUSHES. BLADDER SCAN FOR 460ML, STRAIGHT CATH X1. NO BM. MOM AND SENNA GIVEN. PIV X1 Follow up:[facility] TODAY
[2016-08-15 05:12] LABS: BASOPHIL % 0.4 %; EOSINOPHIL # 0.2 K/uL (0.0-0.5); EOSINOPHIL % 1.7 %; HEMOGLOBIN 10.7 g/dL (12.0-17.0); IMMATURE GRANULOCYTE % 0.4 %; LYMPHOCYTE % 22.5 %; MCH 29.1 pg (27.0-34.0); MCHC 31.5 gm/dL (32.0-36.5); MCV 92.4 fl (83.0-98.0); MONOCYTE # 0.9 K/uL (0.0-1.0); MONOCYTE % 9.9 %; MPV 9.7 fl (9.4-12.4); NEUTROPHIL # (ANC) 5.9 K/uL (1.4-9.0); NEUTROPHIL % 65.1 %; NRBC % 0 /100WBC (0-0.00); PLATELET COUNT 306 K/uL (150-450); RBC 3.68 M/uL (4.00-6.00); RDW-CV 12.1 % (11.9-14.6); WBC 9.1 K/uL (4.0-11.0)
[2016-08-15 05:15] LABS: ANION GAP 9.1 (10.0-19.0); BLOOD UREA NITROGEN 16 mg/dL (6-24); CALCIUM 8.3 mg/dL (8.5-10.5); CHLORIDE 103 mMol/L (96-110); CO2 30 mMol/L (22-32); CREATININE 0.6 mg/dL (0.6-1.3); ESTIMATED GFR (MDRD EQUATION) > 60; POTASSIUM 4.1 mMol/L (3.7-5.1); SODIUM 138 mMol/L (135-145)
--- NOTE | 2016-08-15 05:49 | NUR ---
Patient started the shift off on Trach Mask. He was on this until approximately 2209 when he was switched back over to the vent, CPAP/PS 10/16. Suctioning moderate amounts of thick, white. Patient has been doing 40% FiO2 on the trach mask and 30% on the vent. Patient is supposed to be going to [facility] today via trach mask.
--- NOTE | 2016-08-15 09:45 | NUR ---
Talked to patient's nurse Lonnie this a.m. and he has been cleared for transfer and orders on done. Called [facility] ambulance service and spoke with Leidy to confirm transport is a go for 1000. She says they have a crew ready to go. Several calls with Annmarie at [facility] this a.m. Orders faxed. Dr. West called and spoke with Dr. Mueller. Nurse will call nurse to nurse report. Updated patient's . Patient to transfer via ambulance to [facility] in [place] today at 1000.
--- NOTE | 2016-08-15 09:46 | NUR ---
Vital signs stable. Follows commands appropriately with right arm and right leg. Withdraws left arm and left leg to noxious stimulation. Up to chair with full lift. Tolerating tube feeding with low residual. Switched from CPAP to trach mask this AM, and has had SaO2 in mid-90s. Pt's at bedside and aware of transfer plans. She will drive to [facility] following patient.
== END 2016-08-15 10:30 | DRG 3 ==
LOC: GICU 13:24
PROVIDERS: Anesthesiology; Anesthesiology Critical Care Medicine; Nurse Practitioner Family; ADMIT Neurological Surgery
DX: I63.9 Cerebral infarction, unspecified (principal); I77.74 Dissection of vertebral artery; G93.6 Cerebral edema; J96.00 Acute respiratory failure, unspecified whether with hypoxia or hypercapnia; G91.9 Hydrocephalus, unspecified; I16.1 Hypertensive emergency; G81.94 Hemiplegia, unspecified affecting left nondominant side; I10 Essential (primary) hypertension; R27.0 Ataxia, unspecified; K21.9 Gastro-esophageal reflux disease without esophagitis; R00.1 Bradycardia, unspecified; I71.2 Thoracic aortic aneurysm, without rupture; E66.01 Morbid (severe) obesity due to excess calories; M54.9 Dorsalgia, unspecified; G89.29 Other chronic pain; F17.220 Nicotine dependence, chewing tobacco, uncomplicated; Z95.2 Presence of prosthetic heart valve; Z79.52 Long term (current) use of systemic steroids; Z68.39 Body mass index [BMI] 39.0-39.9, adult
CPT/HCPCS: A9577; J0360; J0690; J1100; J1170; J1644; J1940; J1956; J2185; J2250; J2370; J2405; J2704; J2765; J3010; J3230; J3370; J3480; J7030; J7040; J7050; P9047; Q9967

== ENCOUNTER → 2016-08-15 | Outpatient (CLI) | payer BC ==
[~2016-08-15] MED LIST: ALEVE220 MG PO; BIOFLEX TABLET1 EACH PO; CLARITIN10 MG PO; DELTASONE20 MG PO; GARLIC1 EAC1 PO; HYDRODIURIL25 MG PO; LOPRESSOR50 MG PO; MECLIZINE HCL12.5 MG PO; POTASSIUM99 M1 PO; VITAMIN E400 UNI2 PO; ZOFRAN4 MG PO; ZOVIRAX800 MG PO
== END | disposition disaster alternative care site (69) ==
LOC: GAMB 10:15
DX: I63.9 Cerebral infarction, unspecified (principal); I10 Essential (primary) hypertension; R13.0 Aphagia; Z79.899 Other long term (current) drug therapy; Z88.0 Allergy status to penicillin
CPT/HCPCS: A0422; A0425; A0428